=== PATIENT | male | born 1960 | race Hispanic/Latino ===

== ENCOUNTER 2017-09-24 19:40 | Inpatient (IN) | payer BC, MEDICARE ==
[2017-09-24] MEDS ORDERED: Sodium Chloride 0.9% 1,000 ML IV STA (20:33)
[2017-09-24 21:05] LABS: EOS # 0.2 K/uL (0.0-0.7); HEMOGLOBIN 13.3 g/dL (12.0-18.0); LYMPH # 0.2 K/uL (1.0-4.3); LYMPH % 2.6 % (20.0-40.0); MEAN CELL VOLUME 98.1 fl (80.0-94.0); MEAN CORPUSCULAR HEMOGLOBIN 32.9 pg (27.0-31.0); MEAN CORPUSCULAR HGB CONC 33.5 g/dL (33.0-37.0); MEAN PLATELET VOLUME 7.5 fl (7.2-11.7); MONO # 0.3 K/uL (0.0-0.8); MONO % 4.2 % (0.0-10.0); NEUT # 6.5 K/uL (1.8-7.0); NEUT % 90.2 % (50.0-75.0); PLATELET COUNT 172 K/uL (130-400); RBC 4.06 Mil/uL (4.40-5.90); RED CELL DISTRIBUTION WIDTH 12.8 % (11.5-14.5); WHITE BLOOD COUNT 7.2 K/uL (4.8-10.8)
--- NOTE | 2017-09-24 21:09 | ED PDOC ---
HPI: Abdomen Time Seen by Provider: 09/24/17 20:19 Chief Complaint (Nursing): Abdominal Pain Chief Complaint (Provider): Abdominal pain History Per: Patient History/Exam Limitations: no limitations Onset/Duration Of Symptoms: Days (6) Additional Complaint(s): Patient is a 56 y/o male with a past medical history of hepatitis B, hypertension, and atrial fibrillation presenting to the emergency department for fever, nausea, and right sided flank and abdominal pain ongoing for six days. Reports that the pain is intermittent and feels like a sharp, stabbing pain that radiates to the right side of his abdomen. Further reports dark colored urine, chills, and vomiting today. Denies chest pain, cough, shortness of breath, and other complaints. PCP: [facility] Past Medical History Reviewed: Historical Data, Nursing Documentation, Vital Signs Vital Signs: Last Vital Signs Temp 98.2 F 09/25/17 01:20 Pulse 109 H 09/25/17 04:21 Resp 19 09/25/17 01:20 BP 115/76 09/25/17 01:20 Pulse Ox 93 L 09/25/17 04:21 - Medical History PMH: Atrial Fibrillation, Hepatitis (B, acquired in childhood), HTN, Hyperlipidemia Denies: Chronic Kidney Disease - Surgical History Other surgeries: Abd Hernia repair 4 years [employer] - Family History Family History: States: No Known Family Hx - Social History Current smoker - smoking cessation education provided: No Ex-Smoker (has not smoked in the last 12 months): No Alcohol: None Drugs: Denies - Home Medications Home Medications: Ambulatory Orders Medication Instructions Recorded Aspirin [Ecotrin] 81 mg PO DAILY 09/24/17 Atorvastatin [Lipitor] 10 mg PO DAILY 09/24/17 Dabigatran [Pradaxa] 150 mg PO BID 09/24/17 MetFORMIN [glucoPHAGE] 750 mg PO DAILY 09/24/17 Metoprolol Succinate [Toprol XL] 100 mg PO BID 09/24/17 Propafenone [Rythmol] 425 mg PO BID 09/24/17 Quinapril [Accupril] 20 mg PO DAILY 09/24/17 amLODIPine [Norvasc] 10 mg PO DAILY 09/24/17 - Allergies Allergies/Adverse Reactions: Allergies Allergy/AdvReac Type Severity Reaction Status Date / Time furosemide Allergy Mild RASH Verified 09/24/17 20:27 Iodine and Iodide Containing Allergy Mild RASH Verified 09/24/17 20:27 Produc sitagliptin [From Januvia] Allergy Mild RASH Verified 09/24/17 20:27 Review of Systems ROS Statement: Except As Marked, All Systems Reviewed And Found Negative Constitutional: Positive for: Fever, Chills Cardiovascular: Negative for: Chest Pain Respiratory: Negative for: Cough, Shortness of Breath Gastrointestinal: Positive for: Nausea, Vomiting, Abdominal Pain (right sided flank and abdominal pain) Physical Exam - Reviewed Nursing Documentation Reviewed: Yes Vital Signs Reviewed: Yes - Physical Exam Appears: Positive for: Uncomfortable Head Exam: Positive for: ATRAUMATIC, NORMAL INSPECTION, NORMOCEPHALIC Skin: Positive for: Normal Color, Warm, Dry Eye Exam: Positive for: Normal appearance Neck: Positive for: Normal Cardiovascular/Chest: Positive for: Regular Rate, Rhythm. Negative for: Murmur Respiratory: Positive for: Normal Breath Sounds. Negative for: Accessory Muscle Use, Respiratory Distress Gastrointestinal/Abdominal: Positive for: Soft, Tenderness (mild right upper quadrant). Negative for: Other (Negative Martinez's point) Extremity: Positive for: Normal ROM Neurologic/Psych: Positive for: Alert, Oriented (x3) - Laboratory Results Result Diagrams: 09/24/17 20:50 09/24/17 20:50 - ECG ECG Rhythm: Positive for: Sinus Tachycardia. Negative for: ST/T Changes Rate: 109 O2 Sat by Pulse Oximetry: 93 (RA) Pulse Ox Interpretation: Normal Medical Decision Making Medical Decision Making: Time: 20:33 Initial impression: Patient is a 56 y/o male with right sided abdominal and flank pain, fever, nausea. Initial plan: EKG Labs: CMP, lactic acid, lipase, CBC ED Urine Dipstick Acetaminophen 975 mg PO Toradol 15 mg IV Normal Saline 1 L IV Zofran 4 mg IV Blood Culture Influenza test Urinalysis Abdominal ultrasound Reevaluation A CT order was originally placed, however patient reported that three CT scans were done in July. Given multiple recent CT studies, ultrasound study will be ordered for now. 20:53 EKG reviewed. 22:47 Abdominal ultrasound reviewed. Findings noted as follows: FINDINGS: Liver: Enlarged fatty liver. No intrahepatic bile duct dilation. Gallbladder: Multiple calcified gallstones are present. Negative Martinez's sign. Top normal gallbladder wall measuring 3 mm. Common bile duct: Unremarkable as visualized measuring 5 mm. No stones. No dilation. Pancreas: Unremarkable as visualized. Right kidney: Unremarkable. No stones. No solid mass. No hydronephrosis. IMPRESSION: Cholelithiasis. 22:50 Labs reviewed and were clinically significant for elevated LFTs. Discussed case with Joaquin Tay NP. Patient will be admitted for acute cholelithiasis and cholecystitis. 00:[address] Luis Teague, who was made aware of patients admission. Scribe Attestation: Documented by Katerine Sylvester & Xochitl Guerrero, acting as scribes for Sage Nuñez MD. Provider Scribe Attestation: All medical record entries made by the Scribe were at my direction and personally dictated by me. I have reviewed the chart and agree that the record accurately reflects my personal performance of the history, physical exam, medical decision making, and the department course for this patient. I have also personally directed, reviewed, and agree with the discharge instructions and disposition. Disposition - Clinical Impression Clinical Impression: Cholecystitis, Cholelithiasis - Patient ED Disposition Is Patient to be Admitted: Yes Discussed With Dr.: Luis Teague (Dr Scott surg resident) Comment: Irene Tay [facility] aware Doctor Will See Patient In The: Hospital Counseled Patient/Family Regarding: Studies Performed, Diagnosis - Disposition Disposition Time: 22:50 Condition: FAIR - Pt Status Changed To: Hospital Disposition Of: Inpatient - Admit Certification Admit to Inpatient:: After my assessment, the patient will require hospitalization for at least two midnights. This is because of the severity of symptoms shown, intensity of services needed, and/or the medical risk in this patient being treated as an outpatient.
[2017-09-24 21:14] LABS: ALB/GLOB RATIO 1.2 (1.0-2.1); ALBUMIN 4.5 g/dL (3.5-5.0); ALT/SGPT 374 U/L (21-72); AST/SGOT 178 U/L (17-59); BLOOD UREA NITROGEN 17 mg/dl (9-20); GFR AFRICAN-AMERICAN > 60; GFR NON-AFRICAN AMERICAN > 60; LIPASE 123 U/L (23-300)
[2017-09-24 21:25] LABS: SQUAMOUS EPITHIAL 7 /hpf (0-5); URINE BACTERIA RARE (<OCC); URINE BILIRUBIN MODERATE (NEGATIVE); URINE BLOOD SMALL (NEGATIVE); URINE CLARITY SLIGHTY-CLOUDY (Clear); URINE COLOR AMBER (YELLOW); URINE GLUCOSE (UA) NEG (Normal); URINE LEUKOCYTE ESTERASE NEG Leu/uL (Negative); URINE NITRATE NEGATIVE (NEGATIVE); URINE PROTEIN >=500 mg/dL (NEGATIVE)
[2017-09-24 22:15] LABS: BANDS 2 % (0-2); BASOPHIL 1 % (0-2); EOSINOPHIL 3 % (0-7); LYMPHOCYTE 6 % (20-50); MONOCYTE 4 % (0-10); NEUTROPHIL 84 % (42-75); PLATELET ESTIMATE NORMAL (NORMAL); TOTAL CELLS COUNTED 100
[2017-09-24 22:16] LABS: LARGE PLATELETS PRESENT
[2017-09-24] MEDS ORDERED: HYDROmorphone 1 mg/ml ISec IVP PRN (23:07)
[2017-09-24] MEDS ORDERED: Piperacillin/Tazobact 3.375 GM in Sodium Chloride 0.9% 100 ML IV STA (23:07)
[2017-09-24] MEDS ORDERED: Morphine 4 MG/ML VIAL IVP PRN (23:07)
[2017-09-24] MEDS ORDERED: Morphine 4 MG/ML VIAL ONE (23:26)
[2017-09-24] MEDS ORDERED: Morphine 4 MG/ML VIAL IVP ONE (23:45)
[2017-09-25] MEDS: Sodium Chloride 0.9% 1,000 ML IV SCH ×3 (01:04→19:15)
[2017-09-25] MEDS: Piperacillin/Tazobact 3.375 GM in Sodium Chloride 0.9% 100 ML IVPB SCH ×4 (01:49→18:56)
--- NOTE | 2017-09-25 05:58 | CP.PCM.CON ---
History of Present Illness - History of Present Illness History of Present Illness: General Surgery Consult Re: cholecystitis HPI: 56M presented to ER for fevers, nausea, and right sided flank and abd pain x 6 days. Pain was intermittent at first and feels like a sharp, stabbing pain on the right side of his abdomen. 3 days ago, the pain really began increasing to a severe point but he thought it would go away. Eventually decided to come to ED. + chills, emesis, dark colored urine, light colored stool. Denies chest pain, SOB, and other complaints. Reported he had hemoptysis in May that has since gone away. PMH: Hep B since childhood, DM, HTN, A Fib PSH: L inguinal hernia SH: Former smoker quit 20 yrs ago, Occasional EtOH, no drug use All: furosemide, iodine, sitagliptin Meds: See MAR Review of Systems - Review of Systems All systems: reviewed and no additional remarkable complaints except (as per HPI ) Past Patient History - Past Medical History & Family History Past Medical History?: Yes - Past Social History Alcohol: None Drugs: Denies - CARDIAC Hx Atrial Fibrillation: Yes Hx Hypertension: Yes - PULMONARY Hx Respiratory Disorders: Yes Other/Comment: Hemoptysis back in April 2017 which resolved as per pt. - NEUROLOGICAL Hx Neurological Disorder: No - HEENT Hx HEENT Problems: No - RENAL Hx Chronic Kidney Disease: No - ENDOCRINE/METABOLIC Hx Endocrine Disorders: Yes Hx Diabetes Mellitus Type 2: Yes - HEMATOLOGICAL/ONCOLOGICAL Hx Blood Disorders: Yes Hx Hepatitis B: Yes - INTEGUMENTARY Hx Dermatological Problems: No - MUSCULOSKELETAL/RHEUMATOLOGICAL Hx Musculoskeletal Disorders: No Hx Falls: No - GASTROINTESTINAL Hx Gastrointestinal Disorders: No - GENITOURINARY/GYNECOLOGICAL Hx Genitourinary Disorders: No - PSYCHIATRIC Hx Psychophysiologic Disorder: No Hx Substance Use: No - SURGICAL HISTORY Hx Surgeries: Yes Hx Herniorrhaphy: Yes - ANESTHESIA Hx Anesthesia: Yes Hx Anesthesia Reactions: No Meds Allergies/Adverse Reactions: Allergies Allergy/AdvReac Type Severity Reaction Status Date / Time furosemide Allergy Mild RASH Verified 09/24/17 20:27 Iodine and Iodide Containing Allergy Mild RASH Verified 09/24/17 20:27 Produc sitagliptin [From Octuv] Allergy Mild RASH Verified 09/24/17 20:27 - Medications Medications: Current Medications Acetaminophen (Tylenol 325mg Tab) 650 mg PO Q4 PRN PRN Reason: Fever >100.4 F Famotidine (Pepcid) 20 mg IVP Q12 [facility] Hydromorphone HCl (Dilaudid) 1 mg IVP Q4 PRN PRN Reason: Pain, severe (8-10) Sodium Chloride (Sodium Chloride 0.9%) 1,000 mls @ 100 mls/hr IV .Q10H [facility] Stop: 09/25/17 23:08 Last Admin: 09/25/17 01:04 Dose: 100 mls/hr Piperacillin Sod/Tazobactam (Sod 3.375 gm/ Sodium Chloride) 100 mls @ 100 mls/ hr IVPB Q6H TED PRN Reason: Protocol Last Admin: 09/25/17 05:00 Dose: 100 mls/hr Morphine Sulfate (Morphine) 4 mg IVP Q4 PRN PRN Reason: Pain, moderate (4-7) Last Admin: 09/25/17 05:05 Dose: 4 mg Ondansetron HCl (Zofran Inj) 4 mg IVP Q6 PRN PRN Reason: Nausea/Vomiting Pneumococcal Polyvalent Vaccine (Pneumovax 23 Vaccine) 0.5 ml IM .ONCE ONE Stop: 09/25/17 09:01 Physical Exam - Constitutional Appears: Non-toxic, No Acute Distress - Head Exam Head Exam: ATRAUMATIC, NORMOCEPHALIC - Eye Exam Eye Exam: EOMI, Scleral icterus - ENT Exam ENT Exam: Mucous Membranes Dry Additional comments: trachea midline - Respiratory Exam Respiratory Exam: NORMAL BREATHING PATTERN. absent: Respiratory Distress - Cardiovascular Exam Cardiovascular Exam: Tachycardia, +S1, +S2 - GI/Abdominal Exam GI & Abdominal Exam: Guarding, Soft, Tenderness (ruq). absent: Distended, Firm , Rebound, Rigid - Rectal Exam Rectal Exam: Deferred - Extremities Exam Extremities exam: Positive for: normal capillary refill. Negative for: calf tenderness - Back Exam Back exam: absent: CVA tenderness (L), CVA tenderness (R) - Neurological Exam Neurological exam: Alert, Oriented x3 - Psychiatric Exam Psychiatric exam: Normal Affect, Normal Mood - Skin Skin Exam: Dry, Warm Results - Vital Signs Recent Vital Signs: Last Vital Signs Temp 98.2 F 09/25/17 01:20 Pulse 109 H 09/25/17 04:22 Resp 19 09/25/17 01:20 BP 115/76 09/25/17 01:20 Pulse Ox 93 L 09/25/17 04:22 - Labs Result Diagrams: 09/24/17 20:50 09/24/17 20:50 Labs: Laboratory Results - last 24 hr 09/24/17 09/24/17 09/24/17 20:50 20:50 20:50 WBC 7.2 RBC 4.06 L Hgb 13.3 Hct 39.8 MCV 98.1 H MCH 32.9 H MCHC 33.5 RDW 12.8 Plt Count 172 MPV 7.5 Neut % (Auto) 90.2 H Lymph % (Auto) 2.6 L [place] % (Auto) 4.2 Eos % (Auto) 3.0 Baso % (Auto) 0.0 Neut # 6.5 Lymph # 0.2 L [place] # 0.3 Eos # 0.2 Baso # 0.0 Neutrophils % (Manual) 84 H Band Neutrophils % 2 Lymphocytes % (Manual) 6 L Monocytes % (Manual) 4 Eosinophils % (Manual) 3 Basophils % (Manual) 1 Platelet Estimate Normal Large Platelets Present Macrocytosis (manual) Slight Sodium 133 Potassium 3.8 Chloride 97 L Carbon Dioxide 22 Anion Gap 18 BUN 17 Creatinine 1.0 Est GFR ( Amer) > 60 Est GFR (Non-Af Amer) > 60 POC Glucose (mg/dL) Random Glucose 180 H Lactic Acid 2.4 H Calcium 9.0 Total Bilirubin 4.7 H AST 178 H ALT 374 H Alkaline Phosphatase 169 H Total Protein 8.3 H Albumin 4.5 Globulin 3.8 Albumin/Globulin Ratio 1.2 Lipase 123 Urine Color Urine Clarity Urine pH Ur Specific [place] Urine Protein Urine Glucose (UA) Urine Ketones Urine Blood Urine Nitrate Urine Bilirubin Urine Urobilinogen Ur Leukocyte Esterase Urine RBC (Auto) Urine Microscopic WBC Ur Squamous Epith Cells Urine Bacteria Hyaline Casts Influenza Typ A,B (EIA) 09/24/17 09/24/17 09/25/17 20:50 20:50 01:07 WBC RBC Hgb Hct MCV MCH MCHC RDW Plt Count MPV Neut % (Auto) Lymph % (Auto) [place] % (Auto) Eos % (Auto) Baso % (Auto) Neut # Lymph # [place] # Eos # Baso # Neutrophils % (Manual) Band Neutrophils % Lymphocytes % (Manual) Monocytes % (Manual) Eosinophils % (Manual) Basophils % (Manual) Platelet Estimate Large Platelets Macrocytosis (manual) Sodium Potassium Chloride Carbon Dioxide Anion Gap BUN Creatinine Est GFR ( Amer) Est GFR (Non-Af Amer) POC Glucose (mg/dL) 137 H Random Glucose Lactic Acid Calcium Total Bilirubin AST ALT Alkaline Phosphatase Total Protein Albumin Globulin Albumin/Globulin Ratio Lipase Urine Color Enriqueta Urine Clarity Slighty-cloudy Urine pH 5.0 Ur Specific [place] 1.025 Urine Protein >=500 Urine Glucose (UA) Neg Urine Ketones Trace Urine Blood Small Urine Nitrate Negative Urine Bilirubin Moderate Urine Urobilinogen 4.0 Ur Leukocyte Esterase Neg Urine RBC (Auto) 9 H Urine Microscopic WBC 7 H Ur Squamous Epith Cells 7 H Urine Bacteria Rare Hyaline Casts 6-10 H Influenza Typ A,B (EIA) Negative for flu a/b - Imaging and Cardiology Abdominal x-ray Status: Image reviewed by me (report pending) Assessment & Plan - Assessment and Plan (Free Text) Assessment: 56M with cholelithiasis, possible choledocolithiasis Plan: F/U MRCP NPO Analgesia On zosyn Monitor fevers and abd pain AM labs D/W Dr. Ho Scott PGY4
[2017-09-25 07:34] LABS: INR 1.2 (0.9-1.2); PARTIAL THROMBOPLASTIN TIME 49.7 Seconds (25.6-37.1); PROTHROMBIN TIME 13.6 Seconds (9.8-13.1)
[2017-09-25 08:09] LABS: BASO % 0.4 % (0.0-2.0); EOS # 0.1 K/uL (0.0-0.7); EOS % 2.2 % (0.0-4.0); HEMOGLOBIN 11.7 g/dL (12.0-18.0); LYMPH # 0.4 K/uL (1.0-4.3); LYMPH % 5.7 % (20.0-40.0); MEAN CELL VOLUME 97.8 fl (80.0-94.0); MEAN CORPUSCULAR HEMOGLOBIN 32.7 pg (27.0-31.0); MEAN CORPUSCULAR HGB CONC 33.4 g/dL (33.0-37.0); MEAN PLATELET VOLUME 7.9 fl (7.2-11.7); MONO # 0.9 K/uL (0.0-0.8); MONO % 13.3 % (0.0-10.0); NEUT # 5.1 K/uL (1.8-7.0); NEUT % 78.4 % (50.0-75.0); RBC 3.59 Mil/uL (4.40-5.90); RED CELL DISTRIBUTION WIDTH 12.7 % (11.5-14.5); WHITE BLOOD COUNT 6.5 K/uL (4.8-10.8)
[2017-09-25 08:37] LABS: BLOOD UREA NITROGEN 15 mg/dl (9-20); GFR AFRICAN-AMERICAN > 60; GFR NON-AFRICAN AMERICAN > 60
[2017-09-25 08:38] LABS: ALBUMIN 3.6 g/dL (3.5-5.0); ALT/SGPT 289 U/L (21-72); AST/SGOT 134 U/L (17-59)
[2017-09-25] MEDS ORDERED: Pneumococcal 23-Valent Vaccine IM ONE (09:00)
--- NOTE | 2017-09-25 09:00 | US ---
HISTORY: RUQ with GB and kidney COMPARISON: None. TECHNIQUE: Sonographic evaluation of the right upper quadrant of the abdomen. FINDINGS: LIVER: Enlarged, measuring 21.6 cm in length. Increased echogenicity of the liver parenchyma. No mass. No intrahepatic bile duct dilatation. GALLBLADDER: Minimal cholelithiasis without gallbladder wall thickening or pericholecystic fluid. Sonographic Martinez sign was not elicited. COMMON BILE DUCT: Measures 5 mm. No stones. No dilatation. PANCREAS: Unremarkable as visualized. No mass. No ductal dilatation. RIGHT KIDNEY: Measures 12.4 x 5.9 x 5.8 cm in length. Normal echogenicity. No calculus, mass, or hydronephrosis. AORTA: No aneurysmal dilatation. IVC: Unremarkable. OTHER FINDINGS: None . IMPRESSION: Minimal cholelithiasis without sonographic evidence for acute cholecystitis. Hepatomegaly with steatosis.
--- NOTE | 2017-09-25 10:36 | CP.PCM.HP ---
History of Present Illness - History of Present Illness History of Present Illness: pt admitted for cholelithiasis/cholecystitis. at present pain is controlled. no f/c, n/v/d. bw noted. t bili and lft elevated but trending down. seen at bedside w/ srgical resident. pt is on pradaxa, last dose last night Present on Admission - Present on Admission Any Indicators Present on Admission: Yes History of Uncontrolled Diabetes: Yes Review of Systems - Gastrointestinal Gastrointestinal: As Per HPI, Abdominal Pain Past Patient History - Past Medical History & Family History Past Medical History?: Yes - Past Social History Alcohol: None Drugs: Denies - CARDIAC Hx Atrial Fibrillation: Yes Hx Hypertension: Yes - PULMONARY Hx Respiratory Disorders: Yes Other/Comment: Hemoptysis back in April 2017 which resolved as per pt. - NEUROLOGICAL Hx Neurological Disorder: No - HEENT Hx HEENT Problems: No - RENAL Hx Chronic Kidney Disease: No - ENDOCRINE/METABOLIC Hx Endocrine Disorders: Yes Hx Diabetes Mellitus Type 2: Yes - HEMATOLOGICAL/ONCOLOGICAL Hx Blood Disorders: Yes Hx Hepatitis B: Yes - INTEGUMENTARY Hx Dermatological Problems: No - MUSCULOSKELETAL/RHEUMATOLOGICAL Hx Musculoskeletal Disorders: No Hx Falls: No - GASTROINTESTINAL Hx Gastrointestinal Disorders: No - GENITOURINARY/GYNECOLOGICAL Hx Genitourinary Disorders: No - PSYCHIATRIC Hx Psychophysiologic Disorder: No Hx Substance Use: No - SURGICAL HISTORY Hx Surgeries: Yes Hx Herniorrhaphy: Yes - ANESTHESIA Hx Anesthesia: Yes Hx Anesthesia Reactions: No Meds Home Medications: Home Medication List Medication Instructions Recorded Confirmed Type Amoxicillin/Clavulanate [Augmentin 1 tab PO BID #14 tab 09/25/17 Rx 875 MG-125 MG] oxyCODONE/Acetaminophen [Percocet 1 tab PO Q4 PRN #10 tab 09/25/17 Rx 5/325 mg Tab] Allergies/Adverse Reactions: Allergies Allergy/AdvReac Type Severity Reaction Status Date / Time furosemide Allergy Mild RASH Verified 09/24/17 20:27 Iodine and Iodide Containing Allergy Mild RASH Verified 09/24/17 20:27 Produc sitagliptin [From Januvia] Allergy Mild RASH Verified 09/24/17 20:27 Physical Exam - Constitutional Appears: Well, Non-toxic, No Acute Distress - Head Exam Head Exam: ATRAUMATIC, NORMAL INSPECTION, NORMOCEPHALIC - Eye Exam Eye Exam: EOMI, Normal appearance, PERRL Pupil Exam: NORMAL ACCOMODATION, PERRL - ENT Exam ENT Exam: Mucous Membranes Moist, Normal Exam - Neck Exam Neck exam: Positive for: Normal Inspection - Respiratory Exam Respiratory Exam: Clear to Auscultation Bilateral, NORMAL BREATHING PATTERN - Cardiovascular Exam Cardiovascular Exam: REGULAR RHYTHM, RRR, +S1, +S2 - GI/Abdominal Exam GI & Abdominal Exam: Normal Bowel Sounds, Soft. absent: Tenderness - Extremities Exam Extremities exam: Positive for: full ROM, normal capillary refill, normal inspection, pedal pulses present - Back Exam Back exam: NORMAL INSPECTION - Neurological Exam Neurological exam: Alert, CN II-XII Intact, Normal Gait, Oriented x3, Reflexes Normal - Psychiatric Exam Psychiatric exam: Normal Affect, Normal Mood - Skin Skin Exam: Dry, Intact, Normal Color, Warm Results - Vital Signs Recent Vital Signs: Last Vital Signs Temp 98.6 F 09/25/17 08:39 Pulse 66 09/25/17 08:39 Resp 20 09/25/17 08:39 BP 147/90 09/25/17 08:39 Pulse Ox 95 09/25/17 08:39 - Labs Result Diagrams: 09/25/17 07:00 09/25/17 06:15 Labs: Laboratory Results - last 24 hr 09/24/17 09/24/17 09/24/17 20:50 20:50 20:50 WBC 7.2 RBC 4.06 L Hgb 13.3 Hct 39.8 MCV 98.1 H MCH 32.9 H MCHC 33.5 RDW 12.8 Plt Count 172 MPV 7.5 Neut % (Auto) 90.2 H Lymph % (Auto) 2.6 L [place] % (Auto) 4.2 Eos % (Auto) 3.0 Baso % (Auto) 0.0 Neut # 6.5 Lymph # 0.2 L [place] # 0.3 Eos # 0.2 Baso # 0.0 Neutrophils % (Manual) 84 H Band Neutrophils % 2 Lymphocytes % (Manual) 6 L Monocytes % (Manual) 4 Eosinophils % (Manual) 3 Basophils % (Manual) 1 Platelet Estimate Normal Large Platelets Present Macrocytosis (manual) Slight PT INR APTT Sodium 133 Potassium 3.8 Chloride 97 L Carbon Dioxide 22 Anion Gap 18 BUN 17 Creatinine 1.0 Est GFR ( Amer) > 60 Est GFR (Non-Af Amer) > 60 POC Glucose (mg/dL) Random Glucose 180 H Lactic Acid 2.4 H Calcium 9.0 Total Bilirubin 4.7 H AST 178 H ALT 374 H Alkaline Phosphatase 169 H Total Protein 8.3 H Albumin 4.5 Globulin 3.8 Albumin/Globulin Ratio 1.2 Lipase 123 Urine Color Urine Clarity Urine pH Ur Specific [place] Urine Protein Urine Glucose (UA) Urine Ketones Urine Blood Urine Nitrate Urine Bilirubin Urine Urobilinogen Ur Leukocyte Esterase Urine RBC (Auto) Urine Microscopic WBC Ur Squamous Epith Cells Urine Bacteria Hyaline Casts Influenza Typ A,B (EIA) 09/24/17 09/24/17 09/25/17 20:50 20:50 01:07 WBC RBC Hgb Hct MCV MCH MCHC RDW Plt Count MPV Neut % (Auto) Lymph % (Auto) [place] % (Auto) Eos % (Auto) Baso % (Auto) Neut # Lymph # [place] # Eos # Baso # Neutrophils % (Manual) Band Neutrophils % Lymphocytes % (Manual) Monocytes % (Manual) Eosinophils % (Manual) Basophils % (Manual) Platelet Estimate Large Platelets Macrocytosis (manual) PT INR APTT Sodium Potassium Chloride Carbon Dioxide Anion Gap BUN Creatinine Est GFR ( Amer) Est GFR (Non-Af Amer) POC Glucose (mg/dL) 137 H Random Glucose Lactic Acid Calcium Total Bilirubin AST ALT Alkaline Phosphatase Total Protein Albumin Globulin Albumin/Globulin Ratio Lipase Urine Color [place] Urine Clarity Slighty-cloudy Urine pH 5.0 Ur Specific [place] 1.025 Urine Protein >=500 Urine Glucose (UA) Neg Urine Ketones Trace Urine Blood Small Urine Nitrate Negative Urine Bilirubin Moderate Urine Urobilinogen 4.0 Ur Leukocyte Esterase Neg Urine RBC (Auto) 9 H Urine Microscopic WBC 7 H Ur Squamous Epith Cells 7 H Urine Bacteria Rare Hyaline Casts 6-10 H Influenza Typ A,B (EIA) Negative for flu a/b 09/25/17 09/25/17 09/25/17 05:59 06:15 06:15 WBC RBC Hgb Hct MCV MCH MCHC RDW Plt Count MPV Neut % (Auto) Lymph % (Auto) [place] % (Auto) Eos % (Auto) Baso % (Auto) Neut # Lymph # [place] # Eos # Baso # Neutrophils % (Manual) Band Neutrophils % Lymphocytes % (Manual) Monocytes % (Manual) Eosinophils % (Manual) Basophils % (Manual) Platelet Estimate Large Platelets Macrocytosis (manual) PT 13.6 H INR 1.2 APTT 49.7 H Sodium 137 Potassium 3.7 Chloride 101 Carbon Dioxide 26 Anion Gap 14 BUN 15 Creatinine 1.0 Est GFR ( Amer) > 60 Est GFR (Non-Af Amer) > 60 POC Glucose (mg/dL) 115 H Random Glucose 109 Lactic Acid Calcium 8.0 L Total Bilirubin 3.7 H AST 134 H D ALT 289 H D Alkaline Phosphatase 117 Total Protein 7.1 Albumin 3.6 Globulin 3.5 Albumin/Globulin Ratio 1.0 Lipase Urine Color Urine Clarity Urine pH Ur Specific [place] Urine Protein Urine Glucose (UA) Urine Ketones Urine Blood Urine Nitrate Urine Bilirubin Urine Urobilinogen Ur Leukocyte Esterase Urine RBC (Auto) Urine Microscopic WBC Ur Squamous Epith Cells Urine Bacteria Hyaline Casts Influenza Typ A,B (EIA) 09/25/17 09/25/17 06:15 07:00 WBC 6.5 RBC 3.59 L Hgb 11.7 L Hct 35.1 MCV 97.8 H MCH 32.7 H MCHC 33.4 RDW 12.7 Plt Count 157 MPV 7.9 Neut % (Auto) 78.4 H Lymph % (Auto) 5.7 L [place] % (Auto) 13.3 H Eos % (Auto) 2.2 Baso % (Auto) 0.4 Neut # 5.1 Lymph # 0.4 L [place] # 0.9 H Eos # 0.1 Baso # 0.0 Neutrophils % (Manual) Band Neutrophils % Lymphocytes % (Manual) Monocytes % (Manual) Eosinophils % (Manual) Basophils % (Manual) Platelet Estimate Large Platelets Macrocytosis (manual) PT INR APTT Sodium Potassium Chloride Carbon Dioxide Anion Gap BUN Creatinine Est GFR ( Amer) Est GFR (Non-Af Amer) POC Glucose (mg/dL) Random Glucose Lactic Acid 1.2 Calcium Total Bilirubin AST ALT Alkaline Phosphatase Total Protein Albumin Globulin Albumin/Globulin Ratio Lipase Urine Color Urine Clarity Urine pH Ur Specific [place] Urine Protein Urine Glucose (UA) Urine Ketones Urine Blood Urine Nitrate Urine Bilirubin Urine Urobilinogen Ur Leukocyte Esterase Urine RBC (Auto) Urine Microscopic WBC Ur Squamous Epith Cells Urine Bacteria Hyaline Casts Influenza Typ A,B (EIA) Assessment & Plan (1) Afib Assessment and Plan: pradaxa, rate control, home meds will likely needs 5-7 days off pradaxa prior to lap ajit Status: Acute (2) DVT prophylaxis Assessment and Plan: scd nad ae hose pradaxa Status: Acute (3) Cholecystitis Assessment and Plan: zosyn pain and nausea control po as tara once cleared by surgery ? need to f/u as outpt for lap ajit r/t pradaxa Status: Acute (4) Cholelithiasis Assessment and Plan: pain and nausea control anbx surgery ?? need for outpt f/u once pradaxa stopped Status: Acute Decision To Admit - Pt Status Changed To: Hospital Disposition Of: Inpatient - Admit Certification Admit to Inpatient:: After my assessment, the patient will require hospitalization for at least two midnights. This is because of the severity of symptoms shown, intensity of services needed, and/or the medical risk in this patient being treated as an outpatient. - . Bed Request Type: Med/Surg Admitting Physician: Geovanna Berrios
[2017-09-25] MEDS ORDERED: Metoprolol Succinate 100 mg XL Tab PO SCH (10:45)
--- NOTE | 2017-09-25 10:45 | RAD ---
PROCEDURE: CHEST RADIOGRAPH, 1 VIEW HISTORY: pre op COMPARISON: Chest radiograph dated 06/06/2013 FINDINGS: LUNGS: Clear. PLEURA: No pneumothorax or pleural fluid seen. CARDIOVASCULAR: Cardiomediastinal silhouette stably prominent. OSSEOUS STRUCTURES: Unchanged. VISUALIZED UPPER ABDOMEN: Normal. OTHER FINDINGS: None. IMPRESSION: No active disease.
--- NOTE | 2017-09-25 12:16 | CARD ---
APPROVED REPORT EKG Measurement Heart [id number] <Conclusion> Sinus tachycardia Possible Left atrial enlargement Rightward axis Borderline ECG
--- NOTE | 2017-09-25 15:30 | MRI ---
PROCEDURE: Magnetic Resonance Cholangiopancreatography HISTORY: COMPARISON: None available. TECHNIQUE: Multiplanar, multisequence MR images of the abdomen were obtained, including heavily T2 weighted MRCP images of the biliary system. Rotating maximum intensity projection images of the biliary system were generated. FINDINGS: MRCP: The common bile duct is of a normal caliber. No evidence of choledocholithiasis. No intrahepatic biliary ductal dilatation. LIVER: Unremarkable. GALLBLADDER: Distended gallbladder with minimal cholelithiasis. No gallbladder wall thickening or pericholecystic fluid. SPLEEN: Unremarkable. PANCREAS: Unremarkable. ADRENALS: Unremarkable. KIDNEYS: Nonspecific perinephric stranding. No hydronephrosis. AORTA: No aneurysm. ASCITES: None. OTHER FINDINGS: Small fat containing umbilical hernia. IMPRESSION: As on the ultrasonography, minimal cholelithiasis without MR evidence for acute cholecystitis. No evidence of choledocholithiasis or intrahepatic/extrahepatic biliary ductal dilatation.
--- NOTE | 2017-09-25 18:30 | CON ---
DATE: 09/25/2017 REFERRING PHYSICIAN: Dr. Tay. REASON FOR CONSULTATION: Abdominal pain. HISTORY OF PRESENT ILLNESS: This is a pleasant 56-year-old man with past medical history, which includes AFib, diabetes, hypertension, who comes in for epigastric pain and discomfort in the right upper quadrant and 4 days. The pain is actually not as worse as it was before. No fevers, no chills, no nausea, no vomiting. Currently lying in bed, comfortable, in no apparent distress. PAST MEDICAL HISTORY: As above. PAST SURGICAL HISTORY: As above. MEDICATIONS: Have been reviewed. REVIEW OF SYSTEMS: All other systems have been reviewed, negative apart from the HPI. PHYSICAL EXAMINATION VITAL SIGNS: During the hospital grossly unremarkable. GENERAL: This is a pleasant elderly-appearing male, lying in bed, comfortable, in no apparent distress. HEENT: Head is normocephalic, atraumatic. Eyes; pupils are equal, round, and reactive to light bilaterally. No conjunctival pallor or icterus. NECK: Supple. Normal range of motion. No lymphadenopathy appreciated. LUNGS: Coarse breath sounds bilaterally. HEART: S1, S2, regular rate and rhythm. No murmur appreciated. ABDOMEN: Soft and nontender. Bowel sounds present. No rebound. No guarding. RECTAL: Deferred. EXTREMITIES: Pulses present bilaterally. SKIN: Warm, dry and intact. NEUROLOGIC: A and O x3. LABORATORY DATA: Labs have been reviewed. WBC is 6.5, hemoglobin is 11.7, hematocrit 35.1. Total bilirubin 4.7, now 10.7, alkaline phosphatase is normal at 117. AST and ALT improving at 134 and 289. Ultrasound shows gallstones and no CBD dilatation. ASSESSMENT AND PLAN: This is a 56-year-old male with acute cholecystitis. Plan for laparoscopic cholecystectomy when able. MRCP is pending. Thank you for the consult. Zacarias Rome MD/ PhD cc: Dr. Tay. [facility]
[2017-09-25] MEDS ORDERED: PROPAFENONE 425 MG PO SCH ×2 (19:30)
[2017-09-26] MEDS: Piperacillin/Tazobact 3.375 GM in Sodium Chloride 0.9% 100 ML IVPB SCH ×5 (00:18→23:54)
[2017-09-26] MEDS: PROPAFENONE 425 MG PO SCH ×2 (05:59→17:04)
[2017-09-26 07:14] LABS: BASO % 0.4 % (0.0-2.0); EOS # 0.2 K/uL (0.0-0.7); EOS % 3.7 % (0.0-4.0); HEMOGLOBIN 12.4 g/dL (12.0-18.0); LYMPH # 0.4 K/uL (1.0-4.3); MEAN CELL VOLUME 97.3 fl (80.0-94.0); MEAN CORPUSCULAR HEMOGLOBIN 33.5 pg (27.0-31.0); MEAN CORPUSCULAR HGB CONC 34.4 g/dL (33.0-37.0); MEAN PLATELET VOLUME 8.3 fl (7.2-11.7); MONO # 0.8 K/uL (0.0-0.8); NEUT # 4.8 K/uL (1.8-7.0); NEUT % 76.9 % (50.0-75.0); NRBC % 0.1 % (0.0-0.0); RBC 3.7 Mil/uL (4.40-5.90); RED CELL DISTRIBUTION WIDTH 12.8 % (11.5-14.5); WHITE BLOOD COUNT 6.3 K/uL (4.8-10.8)
[2017-09-26 07:22] LABS: ALBUMIN 3.6 g/dL (3.5-5.0); ALT/SGPT 258 U/L (21-72); AST/SGOT 105 U/L (17-59); BLOOD UREA NITROGEN 11 mg/dl (9-20); CALCIUM 8.3 mg/dL (8.4-10.2); GFR AFRICAN-AMERICAN > 60; GFR NON-AFRICAN AMERICAN > 60
[2017-09-26] MEDS: Multivitamin With Minerals Tab PO SCH (08:56)
--- NOTE | 2017-09-26 09:43 | CP.PCM.PN ---
<Katelin Martínez - Last Filed: 09/26/17 09:41> Subjective - Date & Time of Evaluation Date of Evaluation: 09/26/17 Time of Evaluation: 05:20 - Subjective Subjective: General surgery progress note for Dr. Begum-Katelin Martínez, PGY-1 Pt S & E at bedside. Pt reports intermittent abdominal pain well controlled with pain medication. Able to tolerated a liquid diet last night. Denies N & V, F & C, CP, SOB, other complaints. Last Pradaxa 09/24. Objective - Vital Signs/Intake and Output Vital Signs (last 24 hours): Temp Pulse Resp BP Pulse Ox 99.2 F 66 20 134/80 94 L 09/26/17 08:16 09/26/17 08:56 09/26/17 08:16 09/26/17 08:56 09/26/17 08:16 - Medications Medications: Current Medications Acetaminophen (Tylenol 325mg Tab) 650 mg PO Q4 PRN PRN Reason: Fever >100.4 F Amlodipine Besylate (Norvasc) 10 mg PO DAILY [facility] Last Admin: 09/26/17 08:54 Dose: 10 mg Atorvastatin Calcium (Lipitor) 10 mg PO HS [facility] Last Admin: 09/25/17 21:48 Dose: 10 mg Famotidine (Pepcid) 20 mg IVP Q12 [facility] Last Admin: 09/26/17 08:54 Dose: 20 mg Home Med (Patient's Own Medication) 1 unit PO Q12@0500,1700 [facility] Last Admin: 09/26/17 05:59 Dose: 1 unit Hydromorphone HCl (Dilaudid) 1 mg IVP Q4 PRN PRN Reason: Pain, severe (8-10) Last Admin: 09/26/17 00:26 Dose: 1 mg Piperacillin Sod/Tazobactam (Sod 3.375 gm/ Sodium Chloride) 100 mls @ 100 mls/ hr IVPB Q6H [facility] PRN Reason: Protocol Last Admin: 09/26/17 06:00 Dose: 100 mls/hr Lisinopril (Zestril) 20 mg PO DAILY [facility] Last Admin: 09/26/17 08:56 Dose: 20 mg Metformin HCl (Glucophage) 750 mg PO DAILY [facility] Last Admin: 09/26/17 08:51 Dose: 750 mg Metoprolol Tartrate (Lopressor) 100 mg PO Q12 [facility] Last Admin: 09/26/17 08:53 Dose: 100 mg Morphine Sulfate (Morphine) 4 mg IVP Q4 PRN PRN Reason: Pain, moderate (4-7) Last Admin: 09/25/17 19:06 Dose: 4 mg Multivitamins/Minerals (Therapeutic-M Tab) 1 tab PO DAILY [facility] Last Admin: 09/26/17 08:56 Dose: 1 tab Ondansetron HCl (Zofran Inj) 4 mg IVP Q6 PRN PRN Reason: Nausea/Vomiting - Labs Labs: 09/26/17 05:25 09/26/17 05:25 PT 13.6 Seconds (9.8-13.1) H 09/25/17 06:15 INR 1.2 (0.9-1.2) 09/25/17 06:15 APTT 49.7 Seconds (25.6-37.1) H 09/25/17 06:15 - Constitutional Appears: Non-toxic, No Acute Distress - Head Exam Head Exam: ATRAUMATIC, NORMAL INSPECTION, NORMOCEPHALIC - Eye Exam Eye Exam: EOMI, Normal appearance - ENT Exam ENT Exam: Mucous Membranes Moist, Normal Exam - Neck Exam Neck Exam: Full ROM, Normal Inspection - Respiratory Exam Respiratory Exam: Clear to Ausculation Bilateral, NORMAL BREATHING PATTERN - Cardiovascular Exam Cardiovascular Exam: REGULAR RHYTHM, +S1, +S2 - GI/Abdominal Exam GI & Abdominal Exam: Soft, Normal Bowel Sounds. absent: Distended (obese), Firm , Guarding, Rigid, Tenderness, Mass, Rebound - Extremities Exam Extremities Exam: Normal Inspection. absent: Pedal Edema - Neurological Exam Neurological Exam: Alert, Awake, CN II-XII Intact, Oriented x3 - Psychiatric Exam Psychiatric exam: Normal Affect, Normal Mood - Skin Skin Exam: Dry, Intact, Normal Color, Warm Assessment and Plan - Assessment and Plan (Free Text) Assessment: 56M w/symptomatic cholelithiasis Plan: MRCP w/findings of minimal cholelithiasis without MR evidence for acute cholecystitis. No evidence of choledocholithiasis or intrahepatic/extrahepatic biliary ductal dilatation. Do not restart Pradaxa Pain mgmt Cont Abx Monitor VS and ab pain T bili resolving, now 2.5 from 3.7 Cont medical mgmt as per primary team Further recs as per attending DW attending Tanya, PGY-1 <Blair Begum - Last Filed: 09/26/17 12:31> Subjective - Date & Time of Evaluation Time of Evaluation: 12:05 - Subjective Subjective: Patient was seen and examined at the bedside. Agree with resident's note above. Objective - Vital Signs/Intake and Output Vital Signs (last 24 hours): Temp Pulse Resp BP Pulse Ox 99.2 F 66 20 134/80 94 L 09/26/17 08:16 09/26/17 08:56 09/26/17 08:16 09/26/17 08:56 09/26/17 08:16 - Medications Medications: Current Medications Acetaminophen (Tylenol 325mg Tab) 650 mg PO Q4 PRN PRN Reason: Fever >100.4 F Amlodipine Besylate (Norvasc) 10 mg PO DAILY [facility] Last Admin: 09/26/17 08:54 Dose: 10 mg Atorvastatin Calcium (Lipitor) 10 mg PO HS [facility] Last Admin: 09/25/17 21:48 Dose: 10 mg Famotidine (Pepcid) 20 mg IVP Q12 [facility] Last Admin: 09/26/17 08:54 Dose: 20 mg Home Med (Patient's Own Medication) 1 unit PO Q12@0500,1700 [facility] Last Admin: 09/26/17 05:59 Dose: 1 unit Hydromorphone HCl (Dilaudid) 1 mg IVP Q4 PRN PRN Reason: Pain, severe (8-10) Last Admin: 09/26/17 00:26 Dose: 1 mg Piperacillin Sod/Tazobactam (Sod 3.375 gm/ Sodium Chloride) 100 mls @ 100 mls/ hr IVPB Q6H [facility] PRN Reason: Protocol Last Admin: 09/26/17 06:00 Dose: 100 mls/hr Lisinopril (Zestril) 20 mg PO DAILY [facility] Last Admin: 09/26/17 08:56 Dose: 20 mg Metformin HCl (Glucophage) 750 mg PO DAILY [facility] Last Admin: 09/26/17 08:51 Dose: 750 mg Metoprolol Tartrate (Lopressor) 100 mg PO Q12 [facility] Last Admin: 09/26/17 08:53 Dose: 100 mg Morphine Sulfate (Morphine) 4 mg IVP Q4 PRN PRN Reason: Pain, moderate (4-7) Last Admin: 09/25/17 19:06 Dose: 4 mg Multivitamins/Minerals (Therapeutic-M Tab) 1 tab PO DAILY [facility] Last Admin: 09/26/17 08:56 Dose: 1 tab Ondansetron HCl (Zofran Inj) 4 mg IVP Q6 PRN PRN Reason: Nausea/Vomiting - Labs Labs: 09/26/17 05:25 09/26/17 05:25 PT 13.6 Seconds (9.8-13.1) H 09/25/17 06:15 INR 1.2 (0.9-1.2) 09/25/17 06:15 APTT 49.7 Seconds (25.6-37.1) H 09/25/17 06:15 Assessment and Plan - Assessment and Plan (Free Text) Plan: - Regular diet - Continue antibiotics - Pain control - Hold anticoagulation - Repeat labs in am - Will require cholecystectomy once Pradaxa wears off - Out of bed - Will follow
--- NOTE | 2017-09-26 10:34 | CP.PCM.PN ---
Subjective - Date & Time of Evaluation Date of Evaluation: 09/26/17 Time of Evaluation: 10:33 - Subjective Subjective: no complaints. abd pain w/ eating. no f/c, n/v/d. pradaxa/asa stopped yesterday. gram neg shellie in 1x bc noted. ID consult pending. Objective - Vital Signs/Intake and Output Vital Signs (last 24 hours): Temp Pulse Resp BP Pulse Ox 99.2 F 66 20 134/80 94 L 09/26/17 08:16 09/26/17 08:56 09/26/17 08:16 09/26/17 08:56 09/26/17 08:16 - Medications Medications: Current Medications Acetaminophen (Tylenol 325mg Tab) 650 mg PO Q4 PRN PRN Reason: Fever >100.4 F Amlodipine Besylate (Norvasc) 10 mg PO DAILY [facility] Last Admin: 09/26/17 08:54 Dose: 10 mg Atorvastatin Calcium (Lipitor) 10 mg PO HS [facility] Last Admin: 09/25/17 21:48 Dose: 10 mg Famotidine (Pepcid) 20 mg IVP Q12 [facility] Last Admin: 09/26/17 08:54 Dose: 20 mg Home Med (Patient's Own Medication) 1 unit PO Q12@0500,1700 [facility] Last Admin: 09/26/17 05:59 Dose: 1 unit Hydromorphone HCl (Dilaudid) 1 mg IVP Q4 PRN PRN Reason: Pain, severe (8-10) Last Admin: 09/26/17 00:26 Dose: 1 mg Piperacillin Sod/Tazobactam (Sod 3.375 gm/ Sodium Chloride) 100 mls @ 100 mls/ hr IVPB Q6H [facility] PRN Reason: Protocol Last Admin: 09/26/17 06:00 Dose: 100 mls/hr Lisinopril (Zestril) 20 mg PO DAILY [facility] Last Admin: 09/26/17 08:56 Dose: 20 mg Metformin HCl (Glucophage) 750 mg PO DAILY [facility] Last Admin: 09/26/17 08:51 Dose: 750 mg Metoprolol Tartrate (Lopressor) 100 mg PO Q12 [facility] Last Admin: 09/26/17 08:53 Dose: 100 mg Morphine Sulfate (Morphine) 4 mg IVP Q4 PRN PRN Reason: Pain, moderate (4-7) Last Admin: 09/25/17 19:06 Dose: 4 mg Multivitamins/Minerals (Therapeutic-M Tab) 1 tab PO DAILY [facility] Last Admin: 09/26/17 08:56 Dose: 1 tab Ondansetron HCl (Zofran Inj) 4 mg IVP Q6 PRN PRN Reason: Nausea/Vomiting - Labs Labs: 09/26/17 05:25 09/26/17 05:25 PT 13.6 Seconds (9.8-13.1) H 09/25/17 06:15 INR 1.2 (0.9-1.2) 09/25/17 06:15 APTT 49.7 Seconds (25.6-37.1) H 09/25/17 06:15 - Constitutional Appears: Well, Non-toxic, No Acute Distress - Head Exam Head Exam: ATRAUMATIC, NORMAL INSPECTION, NORMOCEPHALIC - Eye Exam Eye Exam: EOMI, Normal appearance, PERRL Pupil Exam: NORMAL ACCOMODATION, PERRL - ENT Exam ENT Exam: Mucous Membranes Moist, Normal Exam - Neck Exam Neck Exam: Full ROM, Normal Inspection. absent: Lymphadenopathy - Respiratory Exam Respiratory Exam: Clear to Ausculation Bilateral, NORMAL BREATHING PATTERN - Cardiovascular Exam Cardiovascular Exam: REGULAR RHYTHM, RRR, +S1, +S2. absent: Murmur - GI/Abdominal Exam GI & Abdominal Exam: Soft, Normal Bowel Sounds. absent: Tenderness - Extremities Exam Extremities Exam: Full ROM, Normal Capillary Refill, Normal Inspection. absent : Joint Swelling, Pedal Edema - Back Exam Back Exam: NORMAL INSPECTION - Neurological Exam Neurological Exam: Alert, Awake, CN II-XII Intact, Normal Gait, Oriented x3 - Psychiatric Exam Psychiatric exam: Normal Affect, Normal Mood - Skin Skin Exam: Dry, Intact, Normal Color, Warm Assessment and Plan (1) Afib Status: Acute (2) DVT prophylaxis Status: Acute (3) Cholecystitis Status: Acute (4) Cholelithiasis Status: Acute - Assessment and Plan (Free Text) Assessment: (1) Afib Assessment and Plan: pradaxa, rate control, home meds will likely needs 5-7 days off pradaxa prior to lap ajit Status: Acute (2) DVT prophylaxis Assessment and Plan: scd nad ae hose pradaxa Status: Acute (3) Cholecystitis Assessment and Plan: zosyn pain and nausea control po as tara once cleared by surgery ? need to f/u as outpt for lap ajit r/t pradaxa Status: Acute (4) Cholelithiasis Assessment and Plan: pain and nausea control anbx surgery ?? need for outpt f/u once pradaxa stopped will d/c w/ pts cardio the dc of pradaxa Status: Acute 5-pos bc-id, cont zosyn, pending final c/s
[2017-09-27] MEDS: PROPAFENONE 425 MG PO SCH ×2 (05:35→16:39)
[2017-09-27] MEDS: Piperacillin/Tazobact 3.375 GM in Sodium Chloride 0.9% 100 ML IVPB SCH ×3 (05:36→17:37)
--- NOTE | 2017-09-27 07:32 | CP.PCM.CON ---
History of Present Illness - History of Present Illness History of Present Illness: I was asked to see patient by Dr aTy and Dr Berrios. Patient is a 56 year old male with PMH HTN, hypercholesterolemia, paroixysmal atrial fibrillation on Pradaxa who presents with abdominal pain. Patient states crampy abdominal pain began over a week ago but became progressive. He was found to have cholecystitis and require cholecystectomy. The patient denies chest pain or dyspnea. He ambulates without difficulty. Patient had his last cardioversion 4 years ago and has remained in sinus rhythm. Review of Systems - Constitutional Constitutional: absent: As Per HPI, Anorexia, Chills, Daytime Sleepiness, Excessive Sweating, Fatigue, Fever, Frequent Falls, Headache, Increased Appetite , Lethargy, Malaise, Night Sweats, Snoring, Sleep Apnea, Weight Gain, Weight Loss, Weakness, Other - EENT Eyes: absent: As Per HPI, Blind Spots, Blurred Vision, Change in Vision, Decreased Night Vision, Diplopia, Discharge, Dry Eye, Exophthalmos, Floaters, Irritation, Itchy Eyes, Loss of Peripheral Vision, Pain, Photophobia, Requires Corrective Lenses, Sees Flashes, Spots in Vision, Tunnel Vision, Other Visual Disturbances, Loss of Vision, Other Ears: absent: As Per HPI, Decreased Hearing, Ear Discharge, Ear Pain, Tinnitus, Abnormal Hearing, Disequilibrium, Dizziness, Other Nose/Mouth/Throat: absent: As Per HPI, Epistaxis, Nasal Congestion, Nasal Discharge, Nasal Obstruction, Nasal Trauma, Nose Pain, Post Nasal Drip, Sinus Pain, Sinus Pressure, Bleeding Gums, Change in Voice, Dental Pain, Dry Mouth, Dysphagia, Halitosis, Hoarsness, Lip Swelling, Mouth Lesions, Mouth Pain, Odynophagia, Sore Throat, Throat Swelling, Tongue Swelling, Facial Pain, Neck Pain, Neck Mass, Other - Cardiovascular Cardiovascular: absent: As Per HPI, Acrocyanosis, Chest Pain, Chest Pain at Rest , Chest Pain with Activity, Claudication, Diaphoresis, Dyspnea, Dyspnea on Exertion, Edema, Irregular Heart Rhythm, Pain Radiating to Arm/Neck/Jaw, Leg Edema, Leg Ulcers, Lightheadedness, Orthopnea, Palpitations, Paroxysmal Nocturnal Dyspnea, Pedal Edema, Radiating Pain, Rapid Heart Rate, Slow Heart Rate, Syncope, Other - Respiratory Respiratory: absent: As Per HPI, Cough, Dyspnea, Hemoptysis, Dyspnea on Exertion , Wheezing, Snoring, Stridor, Pain on Inspiration, Chest Congestion, Excessive Mucous Production, Change in Mucous Color, Pain with Coughing, Other - Gastrointestinal Gastrointestinal: Abdominal Pain - Genitourinary Genitourinary: absent: As Per HPI, Change in Urinary Stream, Difficulty Urinating, Dysuria, Flank Pain, Hematuria, Pyuria, Nocturia, Urinary Incontinence, Urinary Frequency, Urinary Hesitance, Urinary Urgency, Voiding Freq/Small Amts, Freq UTI, Hx Renal/Bladder Calculi, Hx /Renal Surgery, Bladder Distension, Other - Musculoskeletal Musculoskeletal: absent: As Per HPI, Abnormal Gait, Arthralgias, Atrophy, Back Pain, Deformity, Joint Swelling, Limited Range of Motion, Loss of Height, Muscle Cramps, Muscle Weakness, Myalgias, Neck Pain, Numbness, Radiating Pain into Limb, Stiffness, Tingling, Other - Integumentary Integumentary: absent: As Per HPI, Acne, Alopecia, Bleeding Lesions, Change in Hair, Change in Nails, Change in Pigmentation, Changing Lesions, Dry Skin, Erythema, Furuncle, Hirsutism, Lesions, New Lesions, Non-Healing Lesions, Photosensitivity, Pruritus, Rash, Skin Pain, Skin Ulcer, Sores, Striae, Swelling , Unusual Bruising, Wounds, Jaundice, Other - Neurological Neurological: absent: As Per HPI, Abnormal Gait, Abnormal Hearing, Abnormal Movements, Abnormal Speech, Behavioral Changes, Burning Sensations, Confusion, Convulsions, Disequilibrium, Dizziness, Numbness, Focal Weakness, Frequent Falls , Headaches, Lack of Coordination, Loss of Vision, Memory Loss, Paresthesias, Radicular Pain, Restless Legs, Sensory Deficit, Syncope, Tingling, Tremor, Vertigo, Weakness, Other Visual Disturbances, Other - Psychiatric Psychiatric: absent: As Per HPI, Abnormal Sleep Pattern, Anhedonia, Anxiety, Auditory Hallucinations, Behavioral Changes, Change in Appetite, Change in Libido, Confusion, Depression, Difficulty Concentrating, Hallucinations, Homicidal Ideation, Hopelessness, Irritability, Memory Loss, Mood Swings, Panic Attacks, Paranoia, Suicidal Ideation, Visual Hallucinations, Tactile Hallucinations, Other - Endocrine Endocrine: absent: As Per HPI, Change in Body Appearance, Change in Libido, Cold Intolorance, Deepening of Voice, Excessive Sweating, Fatigue, Flushing, Heat Intolorance, Increase in Ring/Shoe/Hat Size, Palpitations, Polydipsia, Polyphagia, Polyuria, Other - Hematologic/Lymphatic Hematologic: absent: As Per HPI, Easy Bleeding, Easy Bruising, Lymphadenopathy, Other Past Patient History - Past Medical History & Family History Past Medical History?: Yes - Past Social History Alcohol: None Drugs: Denies - CARDIAC Hx Atrial Fibrillation: Yes Hx Hypertension: Yes - PULMONARY Hx Respiratory Disorders: Yes Other/Comment: Hemoptysis back in April 2017 which resolved as per pt. - NEUROLOGICAL Hx Neurological Disorder: No - HEENT Hx HEENT Problems: No - RENAL Hx Chronic Kidney Disease: No - ENDOCRINE/METABOLIC Hx Endocrine Disorders: Yes Hx Diabetes Mellitus Type 2: Yes - HEMATOLOGICAL/ONCOLOGICAL Hx Blood Disorders: Yes Hx Hepatitis B: Yes - INTEGUMENTARY Hx Dermatological Problems: No - MUSCULOSKELETAL/RHEUMATOLOGICAL Hx Musculoskeletal Disorders: No Hx Falls: No - GASTROINTESTINAL Hx Gastrointestinal Disorders: No - GENITOURINARY/GYNECOLOGICAL Hx Genitourinary Disorders: No - PSYCHIATRIC Hx Psychophysiologic Disorder: No Hx Substance Use: No - SURGICAL HISTORY Hx Surgeries: Yes Hx Herniorrhaphy: Yes - ANESTHESIA Hx Anesthesia: Yes Hx Anesthesia Reactions: No Meds Home Medications: Home Medication List Medication Instructions Recorded Confirmed Type Amoxicillin/Clavulanate [Augmentin 1 tab PO BID #14 tab 09/25/17 Rx 875 MG-125 MG] oxyCODONE/Acetaminophen [Percocet 1 tab PO Q4 PRN #10 tab 09/25/17 Rx 5/325 mg Tab] Allergies/Adverse Reactions: Allergies Allergy/AdvReac Type Severity Reaction Status Date / Time furosemide Allergy Mild RASH Verified 09/24/17 20:27 Iodine and Iodide Containing Allergy Mild RASH Verified 09/24/17 20:27 Produc sitagliptin [From Octuv] Allergy Mild RASH Verified 09/24/17 20:27 - Medications Medications: Current Medications Acetaminophen (Tylenol 325mg Tab) 650 mg PO Q4 PRN PRN Reason: Fever >100.4 F Amlodipine Besylate (Norvasc) 10 mg PO DAILY [facility] Last Admin: 09/26/17 08:54 Dose: 10 mg Atorvastatin Calcium (Lipitor) 10 mg PO HS [facility] Last Admin: 09/26/17 21:33 Dose: 10 mg Famotidine (Pepcid) 20 mg IVP Q12 [facility] Last Admin: 09/26/17 21:33 Dose: 20 mg Home Med (Patient's Own Medication) 1 unit PO Q12@0500,1700 [facility] Last Admin: 09/27/17 05:35 Dose: 1 unit Hydromorphone HCl (Dilaudid) 1 mg IVP Q4 PRN PRN Reason: Pain, severe (8-10) Last Admin: 09/26/17 23:55 Dose: 1 mg Piperacillin Sod/Tazobactam (Sod 3.375 gm/ Sodium Chloride) 100 mls @ 100 mls/ hr IVPB Q6H [facility] PRN Reason: Protocol Last Admin: 09/27/17 05:36 Dose: 100 mls/hr Lisinopril (Zestril) 20 mg PO DAILY [facility] Last Admin: 09/26/17 08:56 Dose: 20 mg Metformin HCl (Glucophage) 750 mg PO DAILY [facility] Last Admin: 09/26/17 08:51 Dose: 750 mg Metoprolol Tartrate (Lopressor) 100 mg PO Q12 [facility] Last Admin: 09/26/17 21:33 Dose: 100 mg Morphine Sulfate (Morphine) 4 mg IVP Q4 PRN PRN Reason: Pain, moderate (4-7) Last Admin: 09/25/17 19:06 Dose: 4 mg Multivitamins/Minerals (Therapeutic-M Tab) 1 tab PO DAILY [facility] Last Admin: 09/26/17 08:56 Dose: 1 tab Ondansetron HCl (Zofran Inj) 4 mg IVP Q6 PRN PRN Reason: Nausea/Vomiting Physical Exam - Constitutional Appears: Non-toxic - Head Exam Head Exam: NORMAL INSPECTION - Eye Exam Eye Exam: Normal appearance - ENT Exam ENT Exam: Mucous Membranes Moist - Neck Exam Neck exam: Positive for: Full Rom - Respiratory Exam Respiratory Exam: NORMAL BREATHING PATTERN - Cardiovascular Exam Cardiovascular Exam: REGULAR RHYTHM - GI/Abdominal Exam GI & Abdominal Exam: Normal Bowel Sounds - Rectal Exam Rectal Exam: Deferred - Extremities Exam Extremities exam: Negative for: pedal edema - Back Exam Back exam: NORMAL INSPECTION - Neurological Exam Neurological exam: Alert, Oriented x3 - Psychiatric Exam Psychiatric exam: Normal Affect - Skin Skin Exam: Normal Color Results - Vital Signs Recent Vital Signs: Last Vital Signs Temp 98 F 09/26/17 21:33 Pulse 68 09/26/17 21:33 Resp 17 09/26/17 21:33 BP 136/83 12/02/17 21:33 Pulse Ox 97 09/26/17 21:33 - Labs Result Diagrams: 09/26/17 05:25 09/26/17 05:25 Labs: Laboratory Results - last 24 hr 09/26/17 09/26/17 09/26/17 11:24 16:22 22:03 POC Glucose (mg/dL) 110 124 H 99 09/27/17 05:40 POC Glucose (mg/dL) 94 - EKG Data EKG Interpreted by: Myself EKG shows normal: Sinus rhythm Assessment & Plan (1) Cholecystitis Assessment and Plan: patient is euvolemic and asymptomatic from a cardiac standpoint. There is no cardiovascular contraindication to the planned surgery. Of note patient can have surgery after 3 days from last Pradaxa use. Status: Acute (2) HTN (hypertension) Assessment and Plan: blood pressure controlled Status: Acute (3) Afib Assessment and Plan: in sinus rhythm. will restart Pradaxa after surgery. Status: Acute
[2017-09-27 07:35] LABS: BASO % 0.3 % (0.0-2.0); EOS # 0.3 K/uL (0.0-0.7); EOS % 4.3 % (0.0-4.0); HEMOGLOBIN 12.7 g/dL (12.0-18.0); LYMPH # 0.7 K/uL (1.0-4.3); LYMPH % 8.8 % (20.0-40.0); MEAN CELL VOLUME 97.3 fl (80.0-94.0); MEAN PLATELET VOLUME 7.9 fl (7.2-11.7); MONO # 1.1 K/uL (0.0-0.8); MONO % 13.3 % (0.0-10.0); NEUT # 5.8 K/uL (1.8-7.0); NEUT % 73.3 % (50.0-75.0); NRBC % 0.1 % (0.0-0.0); RBC 3.85 Mil/uL (4.40-5.90); RED CELL DISTRIBUTION WIDTH 12.6 % (11.5-14.5); WHITE BLOOD COUNT 7.9 K/uL (4.8-10.8)
[2017-09-27 07:43] LABS: ALT/SGPT 202 U/L (21-72); AST/SGOT 65 U/L (17-59); BLOOD UREA NITROGEN 7 mg/dl (9-20); CALCIUM 8.8 mg/dL (8.4-10.2); GFR AFRICAN-AMERICAN > 60; GFR NON-AFRICAN AMERICAN > 60
[2017-09-27] MEDS: Multivitamin With Minerals Tab PO SCH (09:14)
--- NOTE | 2017-09-27 11:37 | CP.PCM.CON ---
History of Present Illness - History of Present Illness History of Present Illness: 56 yo male with bacteremia/ sepsis from Gallbladder 56M presented to ER for fevers, nausea, and right sided flank and abd pain x 6 days. Pain was intermittent at first and feels like a sharp, stabbing pain on the right side of his abdomen. 3 days ago, the pain really began increasing to a severe point but he thought it would go away. Eventually decided to come to ED. + chills, emesis, dark colored urine, light colored stool. Denies chest pain , SOB, and other complaints. Reported he had hemoptysis in May that has since gone away. PMH: Hep B since childhood, DM, HTN, A Fib PSH: L inguinal hernia SH: Former smoker quit 20 yrs ago, Occasional EtOH, no drug use All: furosemide, iodine, sitagliptin pradaxa Meds: See MAR Review of Systems - Constitutional Constitutional: As Per HPI, Anorexia, Chills, Fever - EENT Eyes: absent: As Per HPI, Blind Spots, Blurred Vision, Change in Vision, Decreased Night Vision, Diplopia, Discharge, Dry Eye, Exophthalmos, Floaters, Irritation, Itchy Eyes, Loss of Peripheral Vision, Pain, Photophobia, Requires Corrective Lenses, Sees Flashes, Spots in Vision, Tunnel Vision, Other Visual Disturbances, Loss of Vision, Other Ears: absent: As Per HPI, Decreased Hearing, Ear Discharge, Ear Pain, Tinnitus, Abnormal Hearing, Disequilibrium, Dizziness, Other Nose/Mouth/Throat: absent: As Per HPI, Epistaxis, Nasal Congestion, Nasal Discharge, Nasal Obstruction, Nasal Trauma, Nose Pain, Post Nasal Drip, Sinus Pain, Sinus Pressure, Bleeding Gums, Change in Voice, Dental Pain, Dry Mouth, Dysphagia, Halitosis, Hoarsness, Lip Swelling, Mouth Lesions, Mouth Pain, Odynophagia, Sore Throat, Throat Swelling, Tongue Swelling, Facial Pain, Neck Pain, Neck Mass, Other - Cardiovascular Cardiovascular: absent: As Per HPI, Acrocyanosis, Chest Pain, Chest Pain at Rest , Chest Pain with Activity, Claudication, Diaphoresis, Dyspnea, Dyspnea on Exertion, Edema, Irregular Heart Rhythm, Pain Radiating to Arm/Neck/Jaw, Leg Edema, Leg Ulcers, Lightheadedness, Orthopnea, Palpitations, Paroxysmal Nocturnal Dyspnea, Pedal Edema, Radiating Pain, Rapid Heart Rate, Slow Heart Rate, Syncope, Other - Respiratory Respiratory: absent: As Per HPI, Cough, Dyspnea, Hemoptysis, Dyspnea on Exertion , Wheezing, Snoring, Stridor, Pain on Inspiration, Chest Congestion, Excessive Mucous Production, Change in Mucous Color, Pain with Coughing, Other - Gastrointestinal Gastrointestinal: As Per HPI, Abdominal Pain - Genitourinary Genitourinary: absent: As Per HPI, Change in Urinary Stream, Difficulty Urinating, Dysuria, Flank Pain, Hematuria, Pyuria, Nocturia, Urinary Incontinence, Urinary Frequency, Urinary Hesitance, Urinary Urgency, Voiding Freq/Small Amts, Freq UTI, Hx Renal/Bladder Calculi, Hx /Renal Surgery, Bladder Distension, Other - Musculoskeletal Musculoskeletal: absent: As Per HPI, Abnormal Gait, Arthralgias, Atrophy, Back Pain, Deformity, Joint Swelling, Limited Range of Motion, Loss of Height, Muscle Cramps, Muscle Weakness, Myalgias, Neck Pain, Numbness, Radiating Pain into Limb, Stiffness, Tingling, Other - Integumentary Integumentary: absent: As Per HPI, Acne, Alopecia, Bleeding Lesions, Change in Hair, Change in Nails, Change in Pigmentation, Changing Lesions, Dry Skin, Erythema, Furuncle, Hirsutism, Lesions, New Lesions, Non-Healing Lesions, Photosensitivity, Pruritus, Rash, Skin Pain, Skin Ulcer, Sores, Striae, Swelling , Unusual Bruising, Wounds, Jaundice, Other - Neurological Neurological: absent: As Per HPI, Abnormal Gait, Abnormal Hearing, Abnormal Movements, Abnormal Speech, Behavioral Changes, Burning Sensations, Confusion, Convulsions, Disequilibrium, Dizziness, Numbness, Focal Weakness, Frequent Falls , Headaches, Lack of Coordination, Loss of Vision, Memory Loss, Paresthesias, Radicular Pain, Restless Legs, Sensory Deficit, Syncope, Tingling, Tremor, Vertigo, Weakness, Other Visual Disturbances, Other - Psychiatric Psychiatric: absent: As Per HPI, Abnormal Sleep Pattern, Anhedonia, Anxiety, Auditory Hallucinations, Behavioral Changes, Change in Appetite, Change in Libido, Confusion, Depression, Difficulty Concentrating, Hallucinations, Homicidal Ideation, Hopelessness, Irritability, Memory Loss, Mood Swings, Panic Attacks, Paranoia, Suicidal Ideation, Visual Hallucinations, Tactile Hallucinations, Other - Endocrine Endocrine: absent: As Per HPI, Change in Body Appearance, Change in Libido, Cold Intolorance, Deepening of Voice, Excessive Sweating, Fatigue, Flushing, Heat Intolorance, Increase in Ring/Shoe/Hat Size, Palpitations, Polydipsia, Polyphagia, Polyuria, Other - Hematologic/Lymphatic Hematologic: absent: As Per HPI, Easy Bleeding, Easy Bruising, Lymphadenopathy, Other Past Patient History - Past Medical History & Family History Past Medical History?: Yes - Past Social History Alcohol: None Drugs: Denies - CARDIAC Hx Atrial Fibrillation: Yes Hx Hypertension: Yes - PULMONARY Hx Respiratory Disorders: Yes Other/Comment: Hemoptysis back in April 2017 which resolved as per pt. - NEUROLOGICAL Hx Neurological Disorder: No - HEENT Hx HEENT Problems: No - RENAL Hx Chronic Kidney Disease: No - ENDOCRINE/METABOLIC Hx Endocrine Disorders: Yes Hx Diabetes Mellitus Type 2: Yes - HEMATOLOGICAL/ONCOLOGICAL Hx Blood Disorders: Yes Hx Hepatitis B: Yes - INTEGUMENTARY Hx Dermatological Problems: No - MUSCULOSKELETAL/RHEUMATOLOGICAL Hx Musculoskeletal Disorders: No Hx Falls: No - GASTROINTESTINAL Hx Gastrointestinal Disorders: No - GENITOURINARY/GYNECOLOGICAL Hx Genitourinary Disorders: No - PSYCHIATRIC Hx Psychophysiologic Disorder: No Hx Substance Use: No - SURGICAL HISTORY Hx Surgeries: Yes Hx Herniorrhaphy: Yes - ANESTHESIA Hx Anesthesia: Yes Hx Anesthesia Reactions: No Meds Home Medications: Home Medication List Medication Instructions Recorded Confirmed Type Amoxicillin/Clavulanate [Augmentin 1 tab PO BID #14 tab 09/25/17 Rx 875 MG-125 MG] oxyCODONE/Acetaminophen [Percocet 1 tab PO Q4 PRN #10 tab 09/25/17 Rx 5/325 mg Tab] Allergies/Adverse Reactions: Allergies Allergy/AdvReac Type Severity Reaction Status Date / Time furosemide Allergy Mild RASH Verified 09/24/17 20:27 Iodine and Iodide Containing Allergy Mild RASH Verified 09/24/17 20:27 Produc sitagliptin [From ] Allergy Mild RASH Verified 09/24/17 20:27 - Medications Medications: Current Medications Acetaminophen (Tylenol 325mg Tab) 650 mg PO Q4 PRN PRN Reason: Fever >100.4 F Amlodipine Besylate (Norvasc) 10 mg PO DAILY [facility] Last Admin: 09/27/17 09:13 Dose: 10 mg Atorvastatin Calcium (Lipitor) 10 mg PO HS [facility] Last Admin: 09/26/17 21:33 Dose: 10 mg Famotidine (Pepcid) 20 mg IVP Q12 [facility] Last Admin: 09/27/17 09:13 Dose: 20 mg Home Med (Patient's Own Medication) 1 unit PO Q12@0500,1700 [facility] Last Admin: 09/27/17 05:35 Dose: 1 unit Hydromorphone HCl (Dilaudid) 1 mg IVP Q4 PRN PRN Reason: Pain, severe (8-10) Last Admin: 09/26/17 23:55 Dose: 1 mg Piperacillin Sod/Tazobactam (Sod 3.375 gm/ Sodium Chloride) 100 mls @ 100 mls/ hr IVPB Q6H [facility] PRN Reason: Protocol Last Admin: 09/27/17 05:36 Dose: 100 mls/hr Lisinopril (Zestril) 20 mg PO DAILY [facility] Last Admin: 09/27/17 09:14 Dose: 20 mg Metformin HCl (Glucophage) 750 mg PO DAILY [facility] Last Admin: 09/27/17 09:11 Dose: 750 mg Metoprolol Tartrate (Lopressor) 100 mg PO Q12 [facility] Last Admin: 09/27/17 09:12 Dose: 100 mg Morphine Sulfate (Morphine) 4 mg IVP Q4 PRN PRN Reason: Pain, moderate (4-7) Last Admin: 09/25/17 19:06 Dose: 4 mg Multivitamins/Minerals (Therapeutic-M Tab) 1 tab PO DAILY [facility] Last Admin: 09/27/17 09:14 Dose: 1 tab Ondansetron HCl (Zofran Inj) 4 mg IVP Q6 PRN PRN Reason: Nausea/Vomiting Physical Exam - Constitutional Appears: Non-toxic, Chronically Ill - Head Exam Head Exam: ATRAUMATIC, NORMAL INSPECTION, NORMOCEPHALIC - Eye Exam Eye Exam: EOMI, PERRL. absent: Scleral icterus - ENT Exam ENT Exam: Mucous Membranes Dry, Normal External Ear Exam - Neck Exam Neck exam: Negative for: Lymphadenopathy, Thyromegaly - Respiratory Exam Respiratory Exam: Decreased Breath Sounds, Clear to Auscultation Bilateral - Cardiovascular Exam Cardiovascular Exam: REGULAR RHYTHM, +S1, +S2 - GI/Abdominal Exam GI & Abdominal Exam: Diminished Bowel Sounds, Distended, Guarding, Soft, Tenderness. absent: Rebound, Rigid - Rectal Exam Rectal Exam: Deferred - Exam Exam: NORMAL INSPECTION - Extremities Exam Extremities exam: Positive for: pedal pulses present. Negative for: calf tenderness, pedal edema, tenderness - Back Exam Back exam: absent: CVA tenderness (L), CVA tenderness (R), paraspinal tenderness - Neurological Exam Neurological exam: Alert, CN II-XII Intact, Oriented x3, Reflexes Normal - Psychiatric Exam Psychiatric exam: Normal Mood - Skin Skin Exam: Dry Results - Vital Signs Recent Vital Signs: Last Vital Signs Temp 98.6 F 09/27/17 08:25 Pulse 68 09/27/17 09:14 Resp 20 09/27/17 08:25 BP 157/88 H 09/27/17 09:14 Pulse Ox 96 09/27/17 08:25 - Labs Result Diagrams: 09/30/17 06:55 09/30/17 06:55 Labs: Laboratory Results - last 24 hr 09/26/17 09/26/17 09/26/17 11:24 16:22 22:03 WBC RBC Hgb Hct MCV MCH MCHC RDW Plt Count MPV Neut % (Auto) Lymph % (Auto) [place] % (Auto) Eos % (Auto) Baso % (Auto) Neut # Lymph # [place] # Eos # Baso # Sodium Potassium Chloride Carbon Dioxide Anion Gap BUN Creatinine Est GFR ( Amer) Est GFR (Non-Af Amer) POC Glucose (mg/dL) 110 124 H 99 Random Glucose Calcium Total Bilirubin AST ALT Alkaline Phosphatase Total Protein Albumin Globulin Albumin/Globulin Ratio 09/27/17 09/27/17 09/27/17 05:40 06:30 06:30 WBC 7.9 RBC 3.85 L Hgb 12.7 Hct 37.4 MCV 97.3 H MCH 33.0 H MCHC 34.0 RDW 12.6 Plt Count 185 MPV 7.9 Neut % (Auto) 73.3 Lymph % (Auto) 8.8 L [place] % (Auto) 13.3 H Eos % (Auto) 4.3 H Baso % (Auto) 0.3 Neut # 5.8 Lymph # 0.7 L [place] # 1.1 H Eos # 0.3 Baso # 0.0 Sodium 138 Potassium 3.6 Chloride 100 Carbon Dioxide 27 Anion Gap 15 BUN 7 L Creatinine 0.8 Est GFR ( Amer) > 60 Est GFR (Non-Af Amer) > 60 POC Glucose (mg/dL) 94 Random Glucose 113 H Calcium 8.8 Total Bilirubin 1.8 H AST 65 H D ALT 202 H D Alkaline Phosphatase 127 H Total Protein 7.8 Albumin 4.0 Globulin 3.9 Albumin/Globulin Ratio 1.0 Assessment & Plan (1) Diabetes Status: Acute (2) Afib Status: Acute (3) Cholecystitis Status: Acute (4) Cholelithiasis Status: Acute (5) HTN (hypertension) Status: Acute (6) E. coli bacteremia Status: Acute - Assessment and Plan (Free Text) Assessment: cont iv rx for E Coli bacteremia / sepsis pradaxa on hold possible cholecystectomy this week
--- NOTE | 2017-09-27 11:58 | CP.PCM.PN ---
Subjective - Date & Time of Evaluation Date of Evaluation: 09/27/17 Time of Evaluation: 11:35 - Subjective Subjective: Patient was seen and examined at the bedside. States that feels better. Objective - Vital Signs/Intake and Output Vital Signs (last 24 hours): Temp Pulse Resp BP Pulse Ox 98.6 F 68 20 157/88 H 96 09/27/17 08:25 09/27/17 09:14 09/27/17 08:25 09/27/17 09:14 09/27/17 08:25 - Medications Medications: Current Medications Acetaminophen (Tylenol 325mg Tab) 650 mg PO Q4 PRN PRN Reason: Fever >100.4 F Amlodipine Besylate (Norvasc) 10 mg PO DAILY [facility] Last Admin: 09/27/17 09:13 Dose: 10 mg Atorvastatin Calcium (Lipitor) 10 mg PO HS [facility] Last Admin: 09/26/17 21:33 Dose: 10 mg Famotidine (Pepcid) 20 mg IVP Q12 [facility] Last Admin: 09/27/17 09:13 Dose: 20 mg Home Med (Patient's Own Medication) 1 unit PO Q12@0500,1700 [facility] Last Admin: 09/27/17 05:35 Dose: 1 unit Hydromorphone HCl (Dilaudid) 1 mg IVP Q4 PRN PRN Reason: Pain, severe (8-10) Last Admin: 09/26/17 23:55 Dose: 1 mg Piperacillin Sod/Tazobactam (Sod 3.375 gm/ Sodium Chloride) 100 mls @ 100 mls/ hr IVPB Q6H [facility] PRN Reason: Protocol Last Admin: 09/27/17 05:36 Dose: 100 mls/hr Lisinopril (Zestril) 20 mg PO DAILY [facility] Last Admin: 09/27/17 09:14 Dose: 20 mg Metformin HCl (Glucophage) 750 mg PO DAILY [facility] Last Admin: 09/27/17 09:11 Dose: 750 mg Metoprolol Tartrate (Lopressor) 100 mg PO Q12 [facility] Last Admin: 09/27/17 09:12 Dose: 100 mg Morphine Sulfate (Morphine) 4 mg IVP Q4 PRN PRN Reason: Pain, moderate (4-7) Last Admin: 09/25/17 19:06 Dose: 4 mg Multivitamins/Minerals (Therapeutic-M Tab) 1 tab PO DAILY [facility] Last Admin: 09/27/17 09:14 Dose: 1 tab Ondansetron HCl (Zofran Inj) 4 mg IVP Q6 PRN PRN Reason: Nausea/Vomiting - Labs Labs: 09/27/17 06:30 09/27/17 06:30 PT 13.6 Seconds (9.8-13.1) H 09/25/17 06:15 INR 1.2 (0.9-1.2) 09/25/17 06:15 APTT 49.7 Seconds (25.6-37.1) H 09/25/17 06:15 - Constitutional Appears: Well, Non-toxic, No Acute Distress - Head Exam Head Exam: ATRAUMATIC, NORMAL INSPECTION, NORMOCEPHALIC - Eye Exam Eye Exam: EOMI, Normal appearance, PERRL Pupil Exam: NORMAL ACCOMODATION, PERRL - ENT Exam ENT Exam: Mucous Membranes Moist, Normal Exam - Neck Exam Neck Exam: Full ROM, Normal Inspection - Respiratory Exam Respiratory Exam: Clear to Ausculation Bilateral, NORMAL BREATHING PATTERN - Cardiovascular Exam Cardiovascular Exam: +S1, +S2 - GI/Abdominal Exam GI & Abdominal Exam: Soft, Normal Bowel Sounds Additional comments: very mildly tender in the RUQ, ND, no rebound, no guarding, negative Martinez's sign - Rectal Exam Rectal Exam: Deferred - Extremities Exam Extremities Exam: Full ROM, Normal Inspection - Back Exam Back Exam: NORMAL INSPECTION - Neurological Exam Neurological Exam: Alert, Awake, Oriented x3 - Psychiatric Exam Psychiatric exam: Normal Affect, Normal Mood - Skin Skin Exam: Dry, Intact, Normal Color, Warm Assessment and Plan - Assessment and Plan (Free Text) Assessment: 56 y.o. male with cholecystitis Plan: - Continue diet - Pain control - Continue antibiotics - Hold any anticoagulation - Monitor LFTs - Will require cholecystectomy early this week - Repeat labs in am - Will follow
--- NOTE | 2017-09-27 12:17 | CP.PCM.PN ---
Subjective - Date & Time of Evaluation Date of Evaluation: 09/27/17 Time of Evaluation: 12:17 - Subjective Subjective: pt doing well, pain only w/ eating. now on liquid diet and states w/o pain. no f /c, n/v/d. e coli isolated in bc. per dr mayra gomez to cont for now x 2 wks. picc to be inserted. bw noted Objective - Vital Signs/Intake and Output Vital Signs (last 24 hours): Temp Pulse Resp BP Pulse Ox 98.6 F 68 20 157/88 H 96 09/27/17 08:25 09/27/17 09:14 09/27/17 08:25 09/27/17 09:14 09/27/17 08:25 - Medications Medications: Current Medications Acetaminophen (Tylenol 325mg Tab) 650 mg PO Q4 PRN PRN Reason: Fever >100.4 F Amlodipine Besylate (Norvasc) 10 mg PO DAILY [facility] Last Admin: 09/27/17 09:13 Dose: 10 mg Atorvastatin Calcium (Lipitor) 10 mg PO HS [facility] Last Admin: 09/26/17 21:33 Dose: 10 mg Famotidine (Pepcid) 20 mg IVP Q12 [facility] Last Admin: 09/27/17 09:13 Dose: 20 mg Home Med (Patient's Own Medication) 1 unit PO Q12@0500,1700 [facility] Last Admin: 09/27/17 05:35 Dose: 1 unit Hydromorphone HCl (Dilaudid) 1 mg IVP Q4 PRN PRN Reason: Pain, severe (8-10) Last Admin: 09/26/17 23:55 Dose: 1 mg Piperacillin Sod/Tazobactam (Sod 3.375 gm/ Sodium Chloride) 100 mls @ 100 mls/ hr IVPB Q6H [facility] PRN Reason: Protocol Last Admin: 09/27/17 05:36 Dose: 100 mls/hr Lisinopril (Zestril) 20 mg PO DAILY [facility] Last Admin: 09/27/17 09:14 Dose: 20 mg Metformin HCl (Glucophage) 750 mg PO DAILY [facility] Last Admin: 09/27/17 09:11 Dose: 750 mg Metoprolol Tartrate (Lopressor) 100 mg PO Q12 [facility] Last Admin: 09/27/17 09:12 Dose: 100 mg Morphine Sulfate (Morphine) 4 mg IVP Q4 PRN PRN Reason: Pain, moderate (4-7) Last Admin: 09/25/17 19:06 Dose: 4 mg Multivitamins/Minerals (Therapeutic-M Tab) 1 tab PO DAILY [facility] Last Admin: 09/27/17 09:14 Dose: 1 tab Ondansetron HCl (Zofran Inj) 4 mg IVP Q6 PRN PRN Reason: Nausea/Vomiting - Labs Labs: 09/27/17 06:30 09/27/17 06:30 PT 13.6 Seconds (9.8-13.1) H 09/25/17 06:15 INR 1.2 (0.9-1.2) 09/25/17 06:15 APTT 49.7 Seconds (25.6-37.1) H 09/25/17 06:15 - Constitutional Appears: Well, Non-toxic, No Acute Distress - Head Exam Head Exam: ATRAUMATIC, NORMAL INSPECTION, NORMOCEPHALIC - Eye Exam Eye Exam: EOMI, Normal appearance, PERRL Pupil Exam: NORMAL ACCOMODATION, PERRL - ENT Exam ENT Exam: Mucous Membranes Moist, Normal Exam - Neck Exam Neck Exam: Full ROM, Normal Inspection. absent: Lymphadenopathy - Respiratory Exam Respiratory Exam: Clear to Ausculation Bilateral, NORMAL BREATHING PATTERN - Cardiovascular Exam Cardiovascular Exam: REGULAR RHYTHM, RRR, +S1, +S2. absent: Murmur - GI/Abdominal Exam GI & Abdominal Exam: Soft, Normal Bowel Sounds. absent: Tenderness - Extremities Exam Extremities Exam: Full ROM, Normal Capillary Refill, Normal Inspection. absent : Joint Swelling, Pedal Edema - Back Exam Back Exam: NORMAL INSPECTION - Neurological Exam Neurological Exam: Alert, Awake, CN II-XII Intact, Normal Gait, Oriented x3 - Psychiatric Exam Psychiatric exam: Normal Affect, Normal Mood - Skin Skin Exam: Dry, Intact, Normal Color, Warm Assessment and Plan (1) Afib Status: Acute (2) DVT prophylaxis Status: Acute (3) Cholecystitis Status: Acute (4) Cholelithiasis Status: Acute - Assessment and Plan (Free Text) Assessment: (1) Afib Assessment and Plan: pradaxa, rate control, home meds will likely needs 5-7 days off pradaxa prior to lap ajit cardio note appriciated Status: Acute (2) DVT prophylaxis Assessment and Plan: scd nad ae hose pradaxa Status: Acute (3) Cholecystitis Assessment and Plan: zosyn pain and nausea control po as tara once cleared by surgery ? need to f/u as outpt for lap ajit r/t pradaxa likely surgery tues Status: Acute (4) Cholelithiasis Assessment and Plan: pain and nausea control anbx surgery ?? need for outpt f/u once pradaxa stopped will d/c w/ pts cardio the dc of pradaxa Status: Acute 5-pos bc-id, cont zosyn, ec jhon in [place]. anbx x 2 wks. picc
[2017-09-28] MEDS: Piperacillin/Tazobact 3.375 GM in Sodium Chloride 0.9% 100 ML IVPB SCH ×4 (00:40→17:23)
[2017-09-28] MEDS: PROPAFENONE 425 MG PO SCH ×2 (05:34→17:18)
[2017-09-28 06:06] LABS: BASO # 0.1 K/uL (0.0-0.2); BASO % 0.9 % (0.0-2.0); EOS # 0.4 K/uL (0.0-0.7); EOS % 5.7 % (0.0-4.0); HEMOGLOBIN 12.8 g/dL (12.0-18.0); LYMPH # 1.2 K/uL (1.0-4.3); LYMPH % 17.7 % (20.0-40.0); MEAN CELL VOLUME 96.6 fl (80.0-94.0); MEAN CORPUSCULAR HEMOGLOBIN 32.5 pg (27.0-31.0); MEAN CORPUSCULAR HGB CONC 33.6 g/dL (33.0-37.0); MEAN PLATELET VOLUME 7.5 fl (7.2-11.7); MONO # 1.2 K/uL (0.0-0.8); MONO % 18.5 % (0.0-10.0); NEUT # 3.8 K/uL (1.8-7.0); NEUT % 57.2 % (50.0-75.0); NRBC % 0.1 % (0.0-0.0); RBC 3.95 Mil/uL (4.40-5.90); RED CELL DISTRIBUTION WIDTH 12.8 % (11.5-14.5); WHITE BLOOD COUNT 6.7 K/uL (4.8-10.8)
[2017-09-28 06:20] LABS: INR 1.1 (0.9-1.2); PARTIAL THROMBOPLASTIN TIME 32.9 Seconds (25.6-37.1); PROTHROMBIN TIME 12.1 Seconds (9.8-13.1)
[2017-09-28 06:30] LABS: ALT/SGPT 166 U/L (21-72); AST/SGOT 55 U/L (17-59); BLOOD UREA NITROGEN 7 mg/dl (9-20); CALCIUM 8.9 mg/dL (8.4-10.2); GFR AFRICAN-AMERICAN > 60; GFR NON-AFRICAN AMERICAN > 60
[2017-09-28] MEDS ORDERED: Potassium Chloride 20 mEq ER Tab PO ONE (06:33)
--- NOTE | 2017-09-28 08:15 | CP.PCM.PN ---
Subjective - Date & Time of Evaluation Date of Evaluation: 09/28/17 Time of Evaluation: 08:14 - Subjective Subjective: doignwe ll, w/o pain. no f/c, n/v/d. bw noted. lft almost normalized. pt states does not wish for picc r/t possible infection/afib. med cleared for surgery Objective - Vital Signs/Intake and Output Vital Signs (last 24 hours): Temp Pulse Resp BP Pulse Ox 98.2 F 69 20 156/89 H 96 09/28/17 08:03 09/28/17 08:03 09/28/17 08:03 09/28/17 08:03 09/28/17 08:03 - Medications Medications: Current Medications Acetaminophen (Tylenol 325mg Tab) 650 mg PO Q4 PRN PRN Reason: Fever >100.4 F Amlodipine Besylate (Norvasc) 10 mg PO DAILY [facility] Last Admin: 09/27/17 09:13 Dose: 10 mg Atorvastatin Calcium (Lipitor) 10 mg PO HS [facility] Last Admin: 09/27/17 22:05 Dose: 10 mg Famotidine (Pepcid) 20 mg IVP Q12 [facility] Last Admin: 09/27/17 22:02 Dose: 20 mg Home Med (Patient's Own Medication) 1 unit PO Q12@0500,1700 [facility] Last Admin: 09/28/17 05:34 Dose: 1 unit Hydromorphone HCl (Dilaudid) 1 mg IVP Q4 PRN PRN Reason: Pain, severe (8-10) Last Admin: 09/28/17 00:41 Dose: 1 mg Piperacillin Sod/Tazobactam (Sod 3.375 gm/ Sodium Chloride) 100 mls @ 100 mls/ hr IVPB Q6H [facility] PRN Reason: Protocol Last Admin: 09/28/17 05:34 Dose: 100 mls/hr Lisinopril (Zestril) 20 mg PO DAILY [facility] Last Admin: 09/27/17 09:14 Dose: 20 mg Metformin HCl (Glucophage) 750 mg PO DAILY [facility] Last Admin: 09/27/17 09:11 Dose: 750 mg Metoprolol Tartrate (Lopressor) 100 mg PO Q12 [facility] Last Admin: 09/27/17 22:05 Dose: 100 mg Morphine Sulfate (Morphine) 4 mg IVP Q4 PRN PRN Reason: Pain, moderate (4-7) Last Admin: 09/25/17 19:06 Dose: 4 mg Multivitamins/Minerals (Therapeutic-M Tab) 1 tab PO DAILY [facility] Last Admin: 09/27/17 09:14 Dose: 1 tab Ondansetron HCl (Zofran Inj) 4 mg IVP Q6 PRN PRN Reason: Nausea/Vomiting - Labs Labs: 09/28/17 05:45 09/28/17 05:45 PT 12.1 Seconds (9.8-13.1) 09/28/17 05:45 INR 1.1 (0.9-1.2) 09/28/17 05:45 APTT 32.9 Seconds (25.6-37.1) D 09/28/17 05:45 - Constitutional Appears: Well, Non-toxic, No Acute Distress - Head Exam Head Exam: ATRAUMATIC, NORMAL INSPECTION, NORMOCEPHALIC - Eye Exam Eye Exam: EOMI, Normal appearance, PERRL Pupil Exam: NORMAL ACCOMODATION, PERRL - ENT Exam ENT Exam: Mucous Membranes Moist, Normal Exam - Neck Exam Neck Exam: Full ROM, Normal Inspection. absent: Lymphadenopathy - Respiratory Exam Respiratory Exam: Clear to Ausculation Bilateral, NORMAL BREATHING PATTERN - Cardiovascular Exam Cardiovascular Exam: REGULAR RHYTHM, RRR, +S1, +S2. absent: Murmur - GI/Abdominal Exam GI & Abdominal Exam: Soft, Normal Bowel Sounds. absent: Tenderness - Extremities Exam Extremities Exam: Full ROM, Normal Capillary Refill, Normal Inspection. absent : Joint Swelling, Pedal Edema - Back Exam Back Exam: NORMAL INSPECTION - Neurological Exam Neurological Exam: Alert, Awake, CN II-XII Intact, Normal Gait, Oriented x3 - Psychiatric Exam Psychiatric exam: Normal Affect, Normal Mood - Skin Skin Exam: Dry, Intact, Normal Color, Warm Assessment and Plan (1) Afib Status: Acute (2) DVT prophylaxis Status: Acute (3) Cholecystitis Status: Acute (4) Cholelithiasis Status: Acute - Assessment and Plan (Free Text) Assessment: (1) Afib Assessment and Plan: pradaxa, rate control, home meds will likely needs 5-7 days off pradaxa prior to lap ajit cardio note appriciated Status: Acute (2) DVT prophylaxis Assessment and Plan: scd nad ae hose pradaxa Status: Acute (3) Cholecystitis Assessment and Plan: zosyn pain and nausea control po as tara once cleared by surgery ? need to f/u as outpt for lap ajit r/t pradaxa likely surgery tues medically cleared Status: Acute (4) Cholelithiasis Assessment and Plan: pain and nausea control anbx surgery ?? need for outpt f/u once pradaxa stopped will d/c w/ pts cardio the dc of pradaxa Status: Acute 5-pos bc-id, cont zosyn, ec jhon in [place]. anbx x 2 wks. refused picc. wishes for outpt [facility] infusion center w/ peripheral access daily. CM aware
[2017-09-28] MEDS: Multivitamin With Minerals Tab PO SCH (09:06)
--- NOTE | 2017-09-28 11:12 | CP.PCM.PN ---
Subjective - Date & Time of Evaluation Date of Evaluation: 09/28/17 Time of Evaluation: 07:00 - Subjective Subjective: GENERAL SURGERY PROGRESS NOTE FOR DR. WORLEY Patient seen and examined at bedside. He is ambulating. He had some nausea after eating but it resolved. He denies abdominal pain currently. Denies vomiting. Objective - Vital Signs/Intake and Output Vital Signs (last 24 hours): Temp Pulse Resp BP Pulse Ox 98.2 F 69 20 156/89 H 96 09/28/17 08:03 09/28/17 08:03 09/28/17 08:03 09/28/17 08:03 09/28/17 08:03 - Medications Medications: Current Medications Acetaminophen (Tylenol 325mg Tab) 650 mg PO Q4 PRN PRN Reason: Fever >100.4 F Amlodipine Besylate (Norvasc) 10 mg PO DAILY [facility] Last Admin: 09/28/17 09:08 Dose: 10 mg Atorvastatin Calcium (Lipitor) 10 mg PO HS [facility] Last Admin: 09/27/17 22:05 Dose: 10 mg Famotidine (Pepcid) 20 mg IVP Q12 [facility] Last Admin: 09/28/17 09:11 Dose: 20 mg Home Med (Patient's Own Medication) 1 unit PO Q12@0500,1700 [facility] Last Admin: 09/28/17 05:34 Dose: 1 unit Hydromorphone HCl (Dilaudid) 1 mg IVP Q4 PRN PRN Reason: Pain, severe (8-10) Last Admin: 09/28/17 10:57 Dose: 1 mg Piperacillin Sod/Tazobactam (Sod 3.375 gm/ Sodium Chloride) 100 mls @ 100 mls/ hr IVPB Q6H [facility] PRN Reason: Protocol Last Admin: 09/28/17 11:01 Dose: 100 mls/hr Lisinopril (Zestril) 20 mg PO DAILY [facility] Last Admin: 09/28/17 09:07 Dose: 20 mg Metformin HCl (Glucophage) 750 mg PO DAILY [facility] Last Admin: 09/28/17 09:07 Dose: 750 mg Metoprolol Tartrate (Lopressor) 100 mg PO Q12 [facility] Last Admin: 09/28/17 09:07 Dose: 100 mg Morphine Sulfate (Morphine) 4 mg IVP Q4 PRN PRN Reason: Pain, moderate (4-7) Last Admin: 09/25/17 19:06 Dose: 4 mg Multivitamins/Minerals (Therapeutic-M Tab) 1 tab PO DAILY [facility] Last Admin: 09/28/17 09:06 Dose: 1 tab Ondansetron HCl (Zofran Inj) 4 mg IVP Q6 PRN PRN Reason: Nausea/Vomiting - Labs Labs: 09/28/17 05:45 09/28/17 05:45 PT 12.1 Seconds (9.8-13.1) 09/28/17 05:45 INR 1.1 (0.9-1.2) 09/28/17 05:45 APTT 32.9 Seconds (25.6-37.1) D 09/28/17 05:45 - Constitutional Appears: Non-toxic, No Acute Distress - Head Exam Head Exam: ATRAUMATIC, NORMAL INSPECTION - Eye Exam Eye Exam: EOMI, Normal appearance - Respiratory Exam Respiratory Exam: NORMAL BREATHING PATTERN. absent: Respiratory Distress - Cardiovascular Exam Cardiovascular Exam: +S1, +S2 - GI/Abdominal Exam GI & Abdominal Exam: Soft. absent: Distended, Firm, Guarding, Rigid, Tenderness , Rebound - Neurological Exam Neurological Exam: Alert, Awake, Oriented x3 - Psychiatric Exam Psychiatric exam: Normal Affect, Normal Mood - Skin Skin Exam: Dry, Normal Color, Warm Assessment and Plan - Assessment and Plan (Free Text) Assessment: 56yo M with cholelithiasis and E. coli bacteremia - Afebrile, VSS - No leukocytosis - T bili trending down - Continue IV antibiotics - Hold anticoagulation - Plan for OR for lap ajit - Low fat diet for now - Discussed plan with Dr. Ho Watt PGY-3
[2017-09-28 11:49] LABS: HEPATITIS B SURFACE AG NEGATIVE (NEGATIVE)
--- NOTE | 2017-09-28 12:59 | PQF GENQUE ---
This form is a permanent part of the medical record 09/28/17 Joaquin Tay GALVANIZER, Admitted with fever, chills, nausea, vomiting, right sided flank and abdominal pain and dark colored urine. Temp 102.9, HR 103, WBC 7.2 with a L shift and lactic acid of 2.4. MRCP: Cholelithiasis without MR evidence for acute cholecystitis or choledocholithiasis. Blood CS x 1 growing E Coli.Treated with IVAB. Attending: Positive REYNA Surgical Consult: Bacteremia ID Consult: E. Coli Bacteremia/Sepsis Would you please clarify which of the above diagnoses are ruled in or ruled out. Clarification of your documentation is requested to better reflect the severity of illness and intensity of treatment of your patient. Indicators present [] Specify: [] [] Specify: [] [] Specify: [] [] Specify: [] Location in the medical record that reflects the above clinical findings: [] Treatment Provided: [] PHYSICIAN'S RESPONSE Based on your medical judgment of the clinical indicators outlined above please clarify the following: [] Practitioner response dx bacteremia due to e coli. likely from cholecystitis [] If unable to determine, please check the box, sign and date. Present On Admission (POA) Indicator: [] Present at the time of admission [] Not present at the time of admission [] Clinically Undetermined In responding to this query, please exercise your independent professional judgment. The fact that a question is asked does not imply that any particular answer is desired or expected. Thank you for your clarification on this documentation. If you have any questions please call:extension [phone] * Thank you, Angela Choi RN [facility]
[2017-09-29] MEDS: Piperacillin/Tazobact 3.375 GM in Sodium Chloride 0.9% 100 ML IVPB SCH ×4 (00:09→17:00)
[2017-09-29] MEDS: PROPAFENONE 425 MG PO SCH ×2 (05:25→17:00)
[2017-09-29 06:10] LABS: BASO % 0.7 % (0.0-2.0); EOS # 0.4 K/uL (0.0-0.7); EOS % 5.9 % (0.0-4.0); LYMPH # 1.2 K/uL (1.0-4.3); MEAN CELL VOLUME 96.2 fl (80.0-94.0); MEAN CORPUSCULAR HEMOGLOBIN 32.5 pg (27.0-31.0); MEAN CORPUSCULAR HGB CONC 33.8 g/dL (33.0-37.0); MEAN PLATELET VOLUME 7.4 fl (7.2-11.7); MONO # 1.4 K/uL (0.0-0.8); MONO % 20.7 % (0.0-10.0); NEUT # 3.8 K/uL (1.8-7.0); NEUT % 54.7 % (50.0-75.0); PLATELET COUNT 251 K/uL (130-400); RED CELL DISTRIBUTION WIDTH 12.8 % (11.5-14.5); WHITE BLOOD COUNT 6.9 K/uL (4.8-10.8)
[2017-09-29 06:19] LABS: ALBUMIN 3.7 g/dL (3.5-5.0); ALT/SGPT 126 U/L (21-72); AST/SGOT 46 U/L (17-59); BLOOD UREA NITROGEN 10 mg/dl (9-20); CALCIUM 8.6 mg/dL (8.4-10.2); GFR AFRICAN-AMERICAN > 60; GFR NON-AFRICAN AMERICAN > 60
--- NOTE | 2017-09-29 08:38 | CP.PCM.PN ---
Subjective - Date & Time of Evaluation Date of Evaluation: 09/29/17 Time of Evaluation: 08:37 - Subjective Subjective: denies complaints. no f/c, n/v/d. no pain. for or after 7 days off pradaxa. bw noted case d/c w/ surgery Objective - Vital Signs/Intake and Output Vital Signs (last 24 hours): Temp Pulse Resp BP Pulse Ox 98.5 F 58 L 20 158/97 H 95 09/29/17 08:24 09/29/17 08:24 09/29/17 08:24 09/29/17 08:24 09/29/17 08:24 - Medications Medications: Current Medications Acetaminophen (Tylenol 325mg Tab) 650 mg PO Q4 PRN PRN Reason: Fever >100.4 F Amlodipine Besylate (Norvasc) 10 mg PO DAILY [facility] Last Admin: 09/28/17 09:08 Dose: 10 mg Atorvastatin Calcium (Lipitor) 10 mg PO HS [facility] Last Admin: 09/28/17 21:23 Dose: 10 mg Famotidine (Pepcid) 20 mg IVP Q12 [facility] Last Admin: 09/28/17 21:22 Dose: 20 mg Home Med (Patient's Own Medication) 1 unit PO Q12@0500,1700 [facility] Last Admin: 09/29/17 05:25 Dose: 1 unit Hydromorphone HCl (Dilaudid) 1 mg IVP Q4 PRN PRN Reason: Pain, severe (8-10) Last Admin: 09/28/17 21:33 Dose: 1 mg Piperacillin Sod/Tazobactam (Sod 3.375 gm/ Sodium Chloride) 100 mls @ 100 mls/ hr IVPB Q6H [facility] PRN Reason: Protocol Last Admin: 09/29/17 05:25 Dose: 100 mls/hr Lisinopril (Zestril) 20 mg PO DAILY [facility] Last Admin: 09/28/17 09:07 Dose: 20 mg Metformin HCl (Glucophage) 750 mg PO DAILY [facility] Last Admin: 09/28/17 09:07 Dose: 750 mg Metoprolol Tartrate (Lopressor) 100 mg PO Q12 [facility] Last Admin: 09/28/17 21:23 Dose: 100 mg Morphine Sulfate (Morphine) 4 mg IVP Q4 PRN PRN Reason: Pain, moderate (4-7) Last Admin: 09/25/17 19:06 Dose: 4 mg Multivitamins/Minerals (Therapeutic-M Tab) 1 tab PO DAILY [facility] Last Admin: 09/28/17 09:06 Dose: 1 tab Ondansetron HCl (Zofran Inj) 4 mg IVP Q6 PRN PRN Reason: Nausea/Vomiting - Labs Labs: 09/29/17 05:30 09/29/17 05:30 PT 12.1 Seconds (9.8-13.1) 09/28/17 05:45 INR 1.1 (0.9-1.2) 09/28/17 05:45 APTT 32.9 Seconds (25.6-37.1) D 09/28/17 05:45 - Constitutional Appears: Well, Non-toxic, No Acute Distress - Head Exam Head Exam: ATRAUMATIC, NORMAL INSPECTION, NORMOCEPHALIC - Eye Exam Eye Exam: EOMI, Normal appearance, PERRL Pupil Exam: NORMAL ACCOMODATION, PERRL - ENT Exam ENT Exam: Mucous Membranes Moist, Normal Exam - Neck Exam Neck Exam: Full ROM, Normal Inspection. absent: Lymphadenopathy - Respiratory Exam Respiratory Exam: Clear to Ausculation Bilateral, NORMAL BREATHING PATTERN - Cardiovascular Exam Cardiovascular Exam: REGULAR RHYTHM, RRR, +S1, +S2. absent: Murmur - GI/Abdominal Exam GI & Abdominal Exam: Soft, Normal Bowel Sounds. absent: Tenderness - Extremities Exam Extremities Exam: Full ROM, Normal Capillary Refill, Normal Inspection. absent : Joint Swelling, Pedal Edema - Back Exam Back Exam: NORMAL INSPECTION - Neurological Exam Neurological Exam: Alert, Awake, CN II-XII Intact, Normal Gait, Oriented x3 - Psychiatric Exam Psychiatric exam: Normal Affect, Normal Mood - Skin Skin Exam: Dry, Intact, Normal Color, Warm Assessment and Plan (1) Afib Status: Acute (2) DVT prophylaxis Status: Acute (3) Cholecystitis Status: Acute (4) Cholelithiasis Status: Acute - Assessment and Plan (Free Text) Assessment: (1) Afib Assessment and Plan: pradaxa, rate control, home meds will likely needs 7 days off pradaxa prior to lap ajit cardio note appriciated Status: Acute (2) DVT prophylaxis Assessment and Plan: scd nad ae hose pradaxa Status: Acute (3) Cholecystitis Assessment and Plan: zosyn pain and nausea control po as tara once cleared by surgery ? need to f/u as outpt for lap ajit r/t pradaxa likely surgery medically cleared surgery Status: Acute (4) Cholelithiasis Assessment and Plan: pain and nausea control anbx surgery ?? need for outpt f/u once pradaxa stopped will d/c w/ pts cardio the dc of pradaxa Status: Acute 5-pos bc-id, cont zosyn, ec jhon in [place]. anbx x 2 wks. refused picc. wishes for outpt [facility] w/ peripheral access daily. CM aware
[2017-09-29] MEDS: Multivitamin With Minerals Tab PO SCH (09:23)
--- NOTE | 2017-09-29 09:33 | CP.PCM.PN ---
<Betsy Watt - Last Filed: 09/29/17 09:34> Subjective - Date & Time of Evaluation Date of Evaluation: 09/29/17 Time of Evaluation: 07:00 - Subjective Subjective: GENERAL SURGERY PROGRESS NOTE FOR DR. WORLEY Patient seen and examined at bedside. He is ambulating and OOB currently. He reports some pain last night and occasional pain after he eats. The pain resolves with pain medication. He denies nausea or vomiting. Objective - Vital Signs/Intake and Output Vital Signs (last 24 hours): Temp Pulse Resp BP Pulse Ox 98.5 F 64 20 142/88 95 09/29/17 08:24 09/29/17 09:23 09/29/17 08:24 09/29/17 09:23 09/29/17 08:24 - Medications Medications: Current Medications Acetaminophen (Tylenol 325mg Tab) 650 mg PO Q4 PRN PRN Reason: Fever >100.4 F Amlodipine Besylate (Norvasc) 10 mg PO DAILY [facility] Last Admin: 09/29/17 09:22 Dose: 10 mg Atorvastatin Calcium (Lipitor) 10 mg PO HS [facility] Last Admin: 09/28/17 21:23 Dose: 10 mg Famotidine (Pepcid) 20 mg IVP Q12 [facility] Last Admin: 09/28/17 21:22 Dose: 20 mg Home Med (Patient's Own Medication) 1 unit PO Q12@0500,1700 [facility] Last Admin: 09/29/17 05:25 Dose: 1 unit Hydromorphone HCl (Dilaudid) 1 mg IVP Q4 PRN PRN Reason: Pain, severe (8-10) Last Admin: 09/28/17 21:33 Dose: 1 mg Piperacillin Sod/Tazobactam (Sod 3.375 gm/ Sodium Chloride) 100 mls @ 100 mls/ hr IVPB Q6H [facility] PRN Reason: Protocol Last Admin: 09/29/17 05:25 Dose: 100 mls/hr Lisinopril (Zestril) 20 mg PO DAILY [facility] Last Admin: 09/29/17 09:23 Dose: 20 mg Metformin HCl (Glucophage) 750 mg PO DAILY [facility] Last Admin: 09/29/17 09:20 Dose: 750 mg Metoprolol Tartrate (Lopressor) 100 mg PO Q12 [facility] Last Admin: 09/29/17 09:21 Dose: 100 mg Morphine Sulfate (Morphine) 4 mg IVP Q4 PRN PRN Reason: Pain, moderate (4-7) Last Admin: 09/25/17 19:06 Dose: 4 mg Multivitamins/Minerals (Therapeutic-M Tab) 1 tab PO DAILY [facility] Last Admin: 09/29/17 09:23 Dose: 1 tab Ondansetron HCl (Zofran Inj) 4 mg IVP Q6 PRN PRN Reason: Nausea/Vomiting - Labs Labs: 09/29/17 05:30 09/29/17 05:30 PT 12.1 Seconds (9.8-13.1) 09/28/17 05:45 INR 1.1 (0.9-1.2) 09/28/17 05:45 APTT 32.9 Seconds (25.6-37.1) D 09/28/17 05:45 - Constitutional Appears: Non-toxic, No Acute Distress - Head Exam Head Exam: ATRAUMATIC, NORMAL INSPECTION - Eye Exam Eye Exam: EOMI, Normal appearance - Respiratory Exam Respiratory Exam: NORMAL BREATHING PATTERN. absent: Respiratory Distress - Cardiovascular Exam Cardiovascular Exam: +S1, +S2. absent: Tachycardia - GI/Abdominal Exam GI & Abdominal Exam: Soft, Tenderness (mild tenderness in epigastric/RUQ ). absent: Distended, Firm, Guarding, Rigid, Rebound - Neurological Exam Neurological Exam: Alert, Awake, Oriented x3 - Psychiatric Exam Psychiatric exam: Normal Affect, Normal Mood - Skin Skin Exam: Dry, Normal Color, Warm Assessment and Plan - Assessment and Plan (Free Text) Assessment: 56yo M with cholelithiasis and E. coli bacteremia. Repeat blood cx negative @ 24 hours - Afebrile, VSS - No leukocytosis - T bili now WNL, LFTs trending down, Alk phos trending down - Lipase WNL - Continue IV antibiotics - Hold Pradaxa - Plan for OR for lap ajit - Low fat diet for now - Discussed plan with Dr. Ho Watt PGY-3 <Blair Begum - Last Filed: 09/29/17 19:35> Subjective - Date & Time of Evaluation Time of Evaluation: 19:10 - Subjective Subjective: Patient was seen and examined at the bedside. Agree with resident's note above. Objective - Vital Signs/Intake and Output Vital Signs (last 24 hours): Temp Pulse Resp BP Pulse Ox 98 F 63 20 126/81 96 09/29/17 16:05 09/29/17 16:05 09/29/17 16:05 09/29/17 16:05 09/29/17 16:05 - Medications Medications: Current Medications Acetaminophen (Tylenol 325mg Tab) 650 mg PO Q4 PRN PRN Reason: Fever >100.4 F Amlodipine Besylate (Norvasc) 10 mg PO DAILY [facility] Last Admin: 09/29/17 09:22 Dose: 10 mg Atorvastatin Calcium (Lipitor) 10 mg PO HS [facility] Last Admin: 09/28/17 21:23 Dose: 10 mg Famotidine (Pepcid) 20 mg IVP Q12 [facility] Last Admin: 09/29/17 10:38 Dose: 20 mg Home Med (Patient's Own Medication) 1 unit PO Q12@0500,1700 [facility] Last Admin: 09/29/17 17:00 Dose: 1 unit Hydromorphone HCl (Dilaudid) 1 mg IVP Q4 PRN PRN Reason: Pain, severe (8-10) Last Admin: 09/29/17 16:14 Dose: 1 mg Piperacillin Sod/Tazobactam (Sod 3.375 gm/ Sodium Chloride) 100 mls @ 100 mls/ hr IVPB Q6H [facility] PRN Reason: Protocol Last Admin: 09/29/17 17:00 Dose: 100 mls/hr Lisinopril (Zestril) 20 mg PO DAILY [facility] Last Admin: 09/29/17 09:23 Dose: 20 mg Metformin HCl (Glucophage) 750 mg PO DAILY [facility] Last Admin: 09/29/17 09:20 Dose: 750 mg Metoprolol Tartrate (Lopressor) 100 mg PO Q12 [facility] Last Admin: 09/29/17 09:21 Dose: 100 mg Morphine Sulfate (Morphine) 4 mg IVP Q4 PRN PRN Reason: Pain, moderate (4-7) Last Admin: 09/25/17 19:06 Dose: 4 mg Multivitamins/Minerals (Therapeutic-M Tab) 1 tab PO DAILY [facility] Last Admin: 09/29/17 09:23 Dose: 1 tab Ondansetron HCl (Zofran Inj) 4 mg IVP Q6 PRN PRN Reason: Nausea/Vomiting - Labs Labs: 09/29/17 05:30 09/29/17 05:30 PT 12.1 Seconds (9.8-13.1) 09/28/17 05:45 INR 1.1 (0.9-1.2) 09/28/17 05:45 APTT 32.9 Seconds (25.6-37.1) D 09/28/17 05:45
[2017-09-29 11:06] LABS: BANDS 1 % (0-2); EOSINOPHIL 4 % (0-7); LYMPHOCYTE 18 % (20-50); MONOCYTE 16 % (0-10); MYELOCYTE 2 % (0-0); NEUTROPHIL 59 % (42-75); PLATELET ESTIMATE NORMAL (NORMAL); TOTAL CELLS COUNTED 100
[2017-09-29 11:07] LABS: HYPOCHROMIC SLIGHT; OVALOCYTES SLIGHT; TOXIC GRANULATION PRESENT
--- NOTE | 2017-09-29 11:43 | CP.PCM.PN ---
Subjective - Date & Time of Evaluation Date of Evaluation: 09/29/17 Time of Evaluation: 11:30 - Subjective Subjective: no pain Objective - Vital Signs/Intake and Output Vital Signs (last 24 hours): Temp Pulse Resp BP Pulse Ox 98.5 F 64 20 142/88 95 09/29/17 08:24 09/29/17 09:23 09/29/17 08:24 09/29/17 09:23 09/29/17 08:24 - Medications Medications: Current Medications Acetaminophen (Tylenol 325mg Tab) 650 mg PO Q4 PRN PRN Reason: Fever >100.4 F Amlodipine Besylate (Norvasc) 10 mg PO DAILY [facility] Last Admin: 09/29/17 09:22 Dose: 10 mg Atorvastatin Calcium (Lipitor) 10 mg PO HS [facility] Last Admin: 09/28/17 21:23 Dose: 10 mg Famotidine (Pepcid) 20 mg IVP Q12 [facility] Last Admin: 09/29/17 10:38 Dose: 20 mg Home Med (Patient's Own Medication) 1 unit PO Q12@0500,1700 [facility] Last Admin: 09/29/17 05:25 Dose: 1 unit Hydromorphone HCl (Dilaudid) 1 mg IVP Q4 PRN PRN Reason: Pain, severe (8-10) Last Admin: 09/29/17 10:35 Dose: 1 mg Piperacillin Sod/Tazobactam (Sod 3.375 gm/ Sodium Chloride) 100 mls @ 100 mls/ hr IVPB Q6H [facility] PRN Reason: Protocol Last Admin: 09/29/17 05:25 Dose: 100 mls/hr Lisinopril (Zestril) 20 mg PO DAILY [facility] Last Admin: 09/29/17 09:23 Dose: 20 mg Metformin HCl (Glucophage) 750 mg PO DAILY [facility] Last Admin: 09/29/17 09:20 Dose: 750 mg Metoprolol Tartrate (Lopressor) 100 mg PO Q12 [facility] Last Admin: 09/29/17 09:21 Dose: 100 mg Morphine Sulfate (Morphine) 4 mg IVP Q4 PRN PRN Reason: Pain, moderate (4-7) Last Admin: 09/25/17 19:06 Dose: 4 mg Multivitamins/Minerals (Therapeutic-M Tab) 1 tab PO DAILY [facility] Last Admin: 09/29/17 09:23 Dose: 1 tab Ondansetron HCl (Zofran Inj) 4 mg IVP Q6 PRN PRN Reason: Nausea/Vomiting - Labs Labs: 09/29/17 05:30 09/29/17 05:30 PT 12.1 Seconds (9.8-13.1) 09/28/17 05:45 INR 1.1 (0.9-1.2) 09/28/17 05:45 APTT 32.9 Seconds (25.6-37.1) D 09/28/17 05:45 - Head Exam Head Exam: NORMAL INSPECTION - Neck Exam Neck Exam: Normal Inspection - Respiratory Exam Respiratory Exam: NORMAL BREATHING PATTERN - GI/Abdominal Exam GI & Abdominal Exam: Soft, Normal Bowel Sounds Assessment and Plan - Assessment and Plan (Free Text) Assessment: 56 yo male with biliary colic awaiting lap ajit surgical input appreciated
[2017-09-30] MEDS: Piperacillin/Tazobact 3.375 GM in Sodium Chloride 0.9% 100 ML IVPB SCH ×4 (00:19→17:10)
[2017-09-30] MEDS: PROPAFENONE 425 MG PO SCH ×2 (05:38→17:10)
[2017-09-30 07:38] LABS: BASO # 0.1 K/uL (0.0-0.2); BASO % 1.1 % (0.0-2.0); EOS # 0.4 K/uL (0.0-0.7); HEMOGLOBIN 12.3 g/dL (12.0-18.0); LYMPH # 1.3 K/uL (1.0-4.3); LYMPH % 20.5 % (20.0-40.0); MEAN CELL VOLUME 97.4 fl (80.0-94.0); MEAN CORPUSCULAR HEMOGLOBIN 32.7 pg (27.0-31.0); MEAN CORPUSCULAR HGB CONC 33.5 g/dL (33.0-37.0); MEAN PLATELET VOLUME 7.6 fl (7.2-11.7); MONO # 1.1 K/uL (0.0-0.8); MONO % 16.6 % (0.0-10.0); NEUT # 3.7 K/uL (1.8-7.0); NEUT % 55.8 % (50.0-75.0); RBC 3.75 Mil/uL (4.40-5.90); RED CELL DISTRIBUTION WIDTH 12.7 % (11.5-14.5); WHITE BLOOD COUNT 6.5 K/uL (4.8-10.8)
[2017-09-30 07:47] LABS: ALBUMIN 3.9 g/dL (3.5-5.0); ALT/SGPT 135 U/L (21-72); AST/SGOT 66 U/L (17-59); BLOOD UREA NITROGEN 9 mg/dl (9-20); GFR AFRICAN-AMERICAN > 60; GFR NON-AFRICAN AMERICAN > 60
--- NOTE | 2017-09-30 08:26 | CP.PCM.PN ---
Subjective - Date & Time of Evaluation Date of Evaluation: 09/30/17 Time of Evaluation: 08:24 - Subjective Subjective: denies pian. nof /c, n/v/d. for surgery tomorrow. bw noted. consults appriciated. Objective - Vital Signs/Intake and Output Vital Signs (last 24 hours): Temp Pulse Resp BP Pulse Ox 98.1 F 54 L 18 155/90 H 95 09/30/17 00:35 09/30/17 00:35 09/30/17 00:35 09/30/17 00:35 09/30/17 00:35 - Medications Medications: Current Medications Acetaminophen (Tylenol 325mg Tab) 650 mg PO Q4 PRN PRN Reason: Fever >100.4 F Amlodipine Besylate (Norvasc) 10 mg PO DAILY [facility] Last Admin: 09/29/17 09:22 Dose: 10 mg Atorvastatin Calcium (Lipitor) 10 mg PO HS [facility] Last Admin: 09/29/17 21:37 Dose: 10 mg Famotidine (Pepcid) 20 mg IVP Q12 [facility] Last Admin: 09/29/17 21:45 Dose: 20 mg Home Med (Patient's Own Medication) 1 unit PO Q12@0500,1700 [facility] Last Admin: 09/30/17 05:38 Dose: 1 unit Hydromorphone HCl (Dilaudid) 1 mg IVP Q4 PRN PRN Reason: Pain, severe (8-10) Last Admin: 09/29/17 21:44 Dose: 1 mg Piperacillin Sod/Tazobactam (Sod 3.375 gm/ Sodium Chloride) 100 mls @ 100 mls/ hr IVPB Q6H [facility] PRN Reason: Protocol Last Admin: 09/30/17 05:38 Dose: 100 mls/hr Lisinopril (Zestril) 20 mg PO DAILY [facility] Last Admin: 09/29/17 09:23 Dose: 20 mg Metformin HCl (Glucophage) 750 mg PO DAILY [facility] Last Admin: 09/29/17 09:20 Dose: 750 mg Metoprolol Tartrate (Lopressor) 100 mg PO Q12 [facility] Last Admin: 09/29/17 21:37 Dose: 100 mg Morphine Sulfate (Morphine) 4 mg IVP Q4 PRN PRN Reason: Pain, moderate (4-7) Last Admin: 09/25/17 19:06 Dose: 4 mg Multivitamins/Minerals (Therapeutic-M Tab) 1 tab PO DAILY [facility] Last Admin: 09/29/17 09:23 Dose: 1 tab Ondansetron HCl (Zofran Inj) 4 mg IVP Q6 PRN PRN Reason: Nausea/Vomiting - Labs Labs: 09/30/17 06:55 09/30/17 06:55 PT 12.1 Seconds (9.8-13.1) 09/28/17 05:45 INR 1.1 (0.9-1.2) 09/28/17 05:45 APTT 32.9 Seconds (25.6-37.1) D 09/28/17 05:45 - Constitutional Appears: Well, Non-toxic, No Acute Distress - Head Exam Head Exam: ATRAUMATIC, NORMAL INSPECTION, NORMOCEPHALIC - Eye Exam Eye Exam: EOMI, Normal appearance, PERRL Pupil Exam: NORMAL ACCOMODATION, PERRL - ENT Exam ENT Exam: Mucous Membranes Moist, Normal Exam - Neck Exam Neck Exam: Full ROM, Normal Inspection. absent: Lymphadenopathy - Respiratory Exam Respiratory Exam: Clear to Ausculation Bilateral, NORMAL BREATHING PATTERN - Cardiovascular Exam Cardiovascular Exam: Irregular Rhythm, +S1, +S2. absent: Murmur - GI/Abdominal Exam GI & Abdominal Exam: Soft, Normal Bowel Sounds. absent: Tenderness - Extremities Exam Extremities Exam: Full ROM, Normal Capillary Refill, Normal Inspection. absent : Joint Swelling, Pedal Edema - Back Exam Back Exam: NORMAL INSPECTION - Neurological Exam Neurological Exam: Alert, Awake, CN II-XII Intact, Normal Gait, Oriented x3 - Psychiatric Exam Psychiatric exam: Normal Affect, Normal Mood - Skin Skin Exam: Dry, Intact, Normal Color, Warm Assessment and Plan (1) Afib Status: Acute (2) DVT prophylaxis Status: Acute (3) Cholecystitis Status: Acute (4) Cholelithiasis Status: Acute - Assessment and Plan (Free Text) Assessment: (1) Afib Assessment and Plan: pradaxa, rate control, home meds will likely needs 7 days off pradaxa prior to lap ajit cardio note appriciated Status: Acute (2) DVT prophylaxis Assessment and Plan: scd nad ae hose pradaxa Status: Acute (3) Cholecystitis Assessment and Plan: zosyn pain and nausea control medically cleared surgery Status: Acute (4) Cholelithiasis Assessment and Plan: pain and nausea control anbx surger Status: Acute 5-pos bc-id, cont zosyn, ec jhon in [place]. anbx x 2 wks. refused picc. wishes for outpt [facility] infusion center w/ peripheral access daily. CM aware pt has been in afib w/ irregular rythum
[2017-09-30] MEDS: Multivitamin With Minerals Tab PO SCH (08:54)
--- NOTE | 2017-09-30 12:17 | CP.PCM.PN ---
Subjective - Date & Time of Evaluation Date of Evaluation: 09/30/17 Time of Evaluation: 07:00 - Subjective Subjective: no fever pain is less but still present radiating to the back off pradax for OR in AM cont IV antibiotics Objective - Vital Signs/Intake and Output Vital Signs (last 24 hours): Temp Pulse Resp BP Pulse Ox 98.4 F 68 18 165/100 H 94 L 09/30/17 08:37 09/30/17 08:52 09/30/17 08:37 09/30/17 08:52 09/30/17 08:37 - Medications Medications: Current Medications Acetaminophen (Tylenol 325mg Tab) 650 mg PO Q4 PRN PRN Reason: Fever >100.4 F Amlodipine Besylate (Norvasc) 10 mg PO DAILY [facility] Last Admin: 09/30/17 08:52 Dose: 10 mg Atorvastatin Calcium (Lipitor) 10 mg PO HS [facility] Last Admin: 09/29/17 21:37 Dose: 10 mg Famotidine (Pepcid) 20 mg IVP Q12 [facility] Last Admin: 09/30/17 08:27 Dose: 20 mg Home Med (Patient's Own Medication) 1 unit PO Q12@0500,1700 [facility] Last Admin: 09/30/17 05:38 Dose: 1 unit Hydromorphone HCl (Dilaudid) 1 mg IVP Q4 PRN PRN Reason: Pain, severe (8-10) Last Admin: 09/29/17 21:44 Dose: 1 mg Piperacillin Sod/Tazobactam (Sod 3.375 gm/ Sodium Chloride) 100 mls @ 100 mls/ hr IVPB Q6H [facility] PRN Reason: Protocol Last Admin: 09/30/17 05:38 Dose: 100 mls/hr Lisinopril (Zestril) 20 mg PO DAILY [facility] Last Admin: 09/30/17 08:52 Dose: 20 mg Metformin HCl (Glucophage) 750 mg PO DAILY [facility] Last Admin: 09/30/17 08:54 Dose: 750 mg Metoprolol Tartrate (Lopressor) 100 mg PO Q12 [facility] Last Admin: 09/30/17 08:51 Dose: 100 mg Morphine Sulfate (Morphine) 4 mg IVP Q4 PRN PRN Reason: Pain, moderate (4-7) Last Admin: 09/25/17 19:06 Dose: 4 mg Multivitamins/Minerals (Therapeutic-M Tab) 1 tab PO DAILY [facility] Last Admin: 09/30/17 08:54 Dose: 1 tab Ondansetron HCl (Zofran Inj) 4 mg IVP Q6 PRN PRN Reason: Nausea/Vomiting - Labs Labs: 09/30/17 06:55 09/30/17 06:55 PT 12.1 Seconds (9.8-13.1) 09/28/17 05:45 INR 1.1 (0.9-1.2) 09/28/17 05:45 APTT 32.9 Seconds (25.6-37.1) D 09/28/17 05:45 - Constitutional Appears: Non-toxic, Chronically Ill - Head Exam Head Exam: NORMOCEPHALIC - Eye Exam Eye Exam: PERRL - ENT Exam ENT Exam: Mucous Membranes Dry - Neck Exam Neck Exam: absent: Lymphadenopathy - Respiratory Exam Respiratory Exam: Decreased Breath Sounds - Cardiovascular Exam Cardiovascular Exam: REGULAR RHYTHM - GI/Abdominal Exam GI & Abdominal Exam: Distended, Soft, Tenderness - Rectal Exam Rectal Exam: Deferred - Exam Exam: NORMAL INSPECTION Assessment and Plan (1) Diabetes Status: Acute (2) Afib Status: Acute (3) Cholecystitis Status: Acute (4) Cholelithiasis Status: Acute (5) HTN (hypertension) Status: Acute (6) E. coli bacteremia Status: Acute - Assessment and Plan (Free Text) Assessment: for OR tomorrow cont Iv antibiotics
--- NOTE | 2017-09-30 14:36 | CP.PCM.PN ---
<Katelin Martínez - Last Filed: 09/30/17 14:34> Subjective - Date & Time of Evaluation Date of Evaluation: 09/30/17 Time of Evaluation: 10:30 - Subjective Subjective: General surgery note for Dr. Begum-Katelin Martínez, PGY-1 Pt S & E at bedside this AM. Pt reports continued ab pain at night, intermittent, RUQ. Also reports L mid back pain. Denies N & V, F & C, SOB, CP, other complaints. Is ambulating. Tolerating diet. Voiding. Moving bowels. Objective - Vital Signs/Intake and Output Vital Signs (last 24 hours): Temp Pulse Resp BP Pulse Ox 98.4 F 68 18 165/100 H 94 L 09/30/17 08:37 09/30/17 08:52 09/30/17 08:37 09/30/17 08:52 09/30/17 08:37 - Medications Medications: Current Medications Acetaminophen (Tylenol 325mg Tab) 650 mg PO Q4 PRN PRN Reason: Fever >100.4 F Amlodipine Besylate (Norvasc) 10 mg PO DAILY [facility] Last Admin: 09/30/17 08:52 Dose: 10 mg Atorvastatin Calcium (Lipitor) 10 mg PO HS [facility] Last Admin: 09/29/17 21:37 Dose: 10 mg Famotidine (Pepcid) 20 mg IVP Q12 [facility] Last Admin: 09/30/17 08:27 Dose: 20 mg Home Med (Patient's Own Medication) 1 unit PO Q12@0500,1700 [facility] Last Admin: 09/30/17 05:38 Dose: 1 unit Hydromorphone HCl (Dilaudid) 1 mg IVP Q4 PRN PRN Reason: Pain, severe (8-10) Last Admin: 09/30/17 13:34 Dose: 1 mg Piperacillin Sod/Tazobactam (Sod 3.375 gm/ Sodium Chloride) 100 mls @ 100 mls/ hr IVPB Q6H [facility] PRN Reason: Protocol Last Admin: 09/30/17 12:32 Dose: 100 mls/hr Lisinopril (Zestril) 20 mg PO DAILY [facility] Last Admin: 09/30/17 08:52 Dose: 20 mg Metformin HCl (Glucophage) 750 mg PO DAILY [facility] Last Admin: 09/30/17 08:54 Dose: 750 mg Metoprolol Tartrate (Lopressor) 100 mg PO Q12 [facility] Last Admin: 09/30/17 08:51 Dose: 100 mg Morphine Sulfate (Morphine) 4 mg IVP Q4 PRN PRN Reason: Pain, moderate (4-7) Last Admin: 09/25/17 19:06 Dose: 4 mg Multivitamins/Minerals (Therapeutic-M Tab) 1 tab PO DAILY [facility] Last Admin: 09/30/17 08:54 Dose: 1 tab Ondansetron HCl (Zofran Inj) 4 mg IVP Q6 PRN PRN Reason: Nausea/Vomiting - Labs Labs: 09/30/17 06:55 09/30/17 06:55 PT 12.1 Seconds (9.8-13.1) 09/28/17 05:45 INR 1.1 (0.9-1.2) 09/28/17 05:45 APTT 32.9 Seconds (25.6-37.1) D 09/28/17 05:45 - Constitutional Appears: Non-toxic, No Acute Distress - Head Exam Head Exam: ATRAUMATIC, NORMAL INSPECTION, NORMOCEPHALIC - Eye Exam Eye Exam: EOMI, Normal appearance - ENT Exam ENT Exam: Mucous Membranes Moist, Normal Exam - Neck Exam Neck Exam: Full ROM, Normal Inspection - Respiratory Exam Respiratory Exam: Clear to Ausculation Bilateral, NORMAL BREATHING PATTERN - Cardiovascular Exam Cardiovascular Exam: REGULAR RHYTHM, +S1, +S2 - GI/Abdominal Exam GI & Abdominal Exam: Soft, Normal Bowel Sounds. absent: Distended (obese), Firm , Guarding, Rigid, Tenderness - Extremities Exam Extremities Exam: Normal Inspection. absent: Pedal Edema - Neurological Exam Neurological Exam: Alert, Awake, CN II-XII Intact, Oriented x3 - Psychiatric Exam Psychiatric exam: Normal Affect, Normal Mood - Skin Skin Exam: Dry, Intact, Normal Color, Warm Assessment and Plan - Assessment and Plan (Free Text) Assessment: 56yo M with cholelithiasis and E. coli bacteremia. Repeat blood cx negative @ 48H Plan: Cont IV Abx Cont holding Pradaxa/anticoagulation NPO after MN Plan for OR tomorrow Consent in chart Will DW attending Tanya, PGY-1 <Blair Begum - Last Filed: 09/30/17 15:08> Subjective - Date & Time of Evaluation Time of Evaluation: 15:00 - Subjective Subjective: Patient was seen and examined at the bedside. Agree with resident's note above. Objective - Vital Signs/Intake and Output Vital Signs (last 24 hours): Temp Pulse Resp BP Pulse Ox 98.4 F 68 18 165/100 H 94 L 09/30/17 08:37 09/30/17 08:52 09/30/17 08:37 09/30/17 08:52 09/30/17 08:37 - Medications Medications: Current Medications Acetaminophen (Tylenol 325mg Tab) 650 mg PO Q4 PRN PRN Reason: Fever >100.4 F Amlodipine Besylate (Norvasc) 10 mg PO DAILY [facility] Last Admin: 09/30/17 08:52 Dose: 10 mg Atorvastatin Calcium (Lipitor) 10 mg PO HS [facility] Last Admin: 09/29/17 21:37 Dose: 10 mg Famotidine (Pepcid) 20 mg IVP Q12 [facility] Last Admin: 09/30/17 08:27 Dose: 20 mg Home Med (Patient's Own Medication) 1 unit PO Q12@0500,1700 [facility] Last Admin: 09/30/17 05:38 Dose: 1 unit Hydromorphone HCl (Dilaudid) 1 mg IVP Q4 PRN PRN Reason: Pain, severe (8-10) Last Admin: 09/30/17 13:34 Dose: 1 mg Piperacillin Sod/Tazobactam (Sod 3.375 gm/ Sodium Chloride) 100 mls @ 100 mls/ hr IVPB Q6H [facility] PRN Reason: Protocol Last Admin: 09/30/17 12:32 Dose: 100 mls/hr Lisinopril (Zestril) 20 mg PO DAILY [facility] Last Admin: 09/30/17 08:52 Dose: 20 mg Metformin HCl (Glucophage) 750 mg PO DAILY [facility] Last Admin: 09/30/17 08:54 Dose: 750 mg Metoprolol Tartrate (Lopressor) 100 mg PO Q12 [facility] Last Admin: 09/30/17 08:51 Dose: 100 mg Morphine Sulfate (Morphine) 4 mg IVP Q4 PRN PRN Reason: Pain, moderate (4-7) Last Admin: 09/25/17 19:06 Dose: 4 mg Multivitamins/Minerals (Therapeutic-M Tab) 1 tab PO DAILY [facility] Last Admin: 09/30/17 08:54 Dose: 1 tab Ondansetron HCl (Zofran Inj) 4 mg IVP Q6 PRN PRN Reason: Nausea/Vomiting - Labs Labs: 09/30/17 06:55 09/30/17 06:55 PT 12.1 Seconds (9.8-13.1) 09/28/17 05:45 INR 1.1 (0.9-1.2) 09/28/17 05:45 APTT 32.9 Seconds (25.6-37.1) D 09/28/17 05:45
--- NOTE | 2017-09-30 16:01 | CP.PCM.PN ---
Subjective - Date & Time of Evaluation Date of Evaluation: 09/30/17 Time of Evaluation: 16:00 - Subjective Subjective: no pain Objective - Vital Signs/Intake and Output Vital Signs (last 24 hours): Temp Pulse Resp BP Pulse Ox 98.4 F 68 18 165/100 H 94 L 09/30/17 08:37 09/30/17 08:52 09/30/17 08:37 09/30/17 08:52 09/30/17 08:37 - Medications Medications: Current Medications Acetaminophen (Tylenol 325mg Tab) 650 mg PO Q4 PRN PRN Reason: Fever >100.4 F Amlodipine Besylate (Norvasc) 10 mg PO DAILY [facility] Last Admin: 09/30/17 08:52 Dose: 10 mg Atorvastatin Calcium (Lipitor) 10 mg PO HS [facility] Last Admin: 09/29/17 21:37 Dose: 10 mg Famotidine (Pepcid) 20 mg IVP Q12 [facility] Last Admin: 09/30/17 08:27 Dose: 20 mg Home Med (Patient's Own Medication) 1 unit PO Q12@0500,1700 [facility] Last Admin: 09/30/17 05:38 Dose: 1 unit Hydromorphone HCl (Dilaudid) 1 mg IVP Q4 PRN PRN Reason: Pain, severe (8-10) Last Admin: 09/30/17 13:34 Dose: 1 mg Piperacillin Sod/Tazobactam (Sod 3.375 gm/ Sodium Chloride) 100 mls @ 100 mls/ hr IVPB Q6H [facility] PRN Reason: Protocol Last Admin: 09/30/17 12:32 Dose: 100 mls/hr Lisinopril (Zestril) 20 mg PO DAILY [facility] Last Admin: 09/30/17 08:52 Dose: 20 mg Metformin HCl (Glucophage) 750 mg PO DAILY [facility] Last Admin: 09/30/17 08:54 Dose: 750 mg Metoprolol Tartrate (Lopressor) 100 mg PO Q12 [facility] Last Admin: 09/30/17 08:51 Dose: 100 mg Morphine Sulfate (Morphine) 4 mg IVP Q4 PRN PRN Reason: Pain, moderate (4-7) Last Admin: 09/25/17 19:06 Dose: 4 mg Multivitamins/Minerals (Therapeutic-M Tab) 1 tab PO DAILY [facility] Last Admin: 09/30/17 08:54 Dose: 1 tab Ondansetron HCl (Zofran Inj) 4 mg IVP Q6 PRN PRN Reason: Nausea/Vomiting - Labs Labs: 09/30/17 06:55 09/30/17 06:55 PT 12.1 Seconds (9.8-13.1) 09/28/17 05:45 INR 1.1 (0.9-1.2) 09/28/17 05:45 APTT 32.9 Seconds (25.6-37.1) D 09/28/17 05:45 - Head Exam Head Exam: NORMAL INSPECTION - Respiratory Exam Respiratory Exam: NORMAL BREATHING PATTERN - Cardiovascular Exam Cardiovascular Exam: REGULAR RHYTHM - GI/Abdominal Exam GI & Abdominal Exam: Soft, Normal Bowel Sounds Assessment and Plan - Assessment and Plan (Free Text) Assessment: 56 yo male with abd pain lap ajit in am
[2017-10-01] MEDS: Piperacillin/Tazobact 3.375 GM in Sodium Chloride 0.9% 100 ML IVPB SCH ×2 (00:05→05:50)
[2017-10-01] MEDS: PROPAFENONE 425 MG PO SCH ×2 (05:50→16:40)
[2017-10-01 06:27] LABS: INR 1.1 (0.9-1.2); PARTIAL THROMBOPLASTIN TIME 30.7 Seconds (25.6-37.1); PROTHROMBIN TIME 11.7 Seconds (9.8-13.1)
[2017-10-01 06:36] LABS: BASO # 0.1 K/uL (0.0-0.2); BASO % 1.3 % (0.0-2.0); EOS # 0.4 K/uL (0.0-0.7); HEMOGLOBIN 12.1 g/dL (12.0-18.0); LYMPH # 1.3 K/uL (1.0-4.3); LYMPH % 17.7 % (20.0-40.0); MEAN CORPUSCULAR HEMOGLOBIN 32.9 pg (27.0-31.0); MEAN CORPUSCULAR HGB CONC 33.9 g/dL (33.0-37.0); MEAN PLATELET VOLUME 7.5 fl (7.2-11.7); NEUT # 4.4 K/uL (1.8-7.0); NRBC % 0.1 % (0.0-0.0); RBC 3.67 Mil/uL (4.40-5.90); RED CELL DISTRIBUTION WIDTH 12.6 % (11.5-14.5); WHITE BLOOD COUNT 7.2 K/uL (4.8-10.8)
[2017-10-01 07:05] LABS: ALB/GLOB RATIO 0.9 (1.0-2.1); ALBUMIN 3.7 g/dL (3.5-5.0); ALT/SGPT 130 U/L (21-72); AST/SGOT 63 U/L (17-59); BLOOD UREA NITROGEN 11 mg/dl (9-20); CALCIUM 8.5 mg/dL (8.4-10.2); GFR AFRICAN-AMERICAN > 60; GFR NON-AFRICAN AMERICAN > 60
--- NOTE | 2017-10-01 08:26 | CP.PCM.PN ---
Subjective - Date & Time of Evaluation Date of Evaluation: 10/01/17 Time of Evaluation: 08:24 - Subjective Subjective: no pain. distress. no f/c n/v/d. bw noted. cleared for surgery lap ajit today 1100 Objective - Vital Signs/Intake and Output Vital Signs (last 24 hours): Temp Pulse Resp BP Pulse Ox 97.8 F 58 L 18 141/90 96 10/01/17 00:40 10/01/17 00:40 10/01/17 00:40 10/01/17 00:40 10/01/17 00:40 - Medications Medications: Current Medications Acetaminophen (Tylenol 325mg Tab) 650 mg PO Q4 PRN PRN Reason: Fever >100.4 F Amlodipine Besylate (Norvasc) 10 mg PO DAILY [facility] Last Admin: 09/30/17 08:52 Dose: 10 mg Atorvastatin Calcium (Lipitor) 10 mg PO HS [facility] Last Admin: 09/30/17 21:51 Dose: 10 mg Famotidine (Pepcid) 20 mg IVP Q12 [facility] Last Admin: 09/30/17 21:51 Dose: 20 mg Home Med (Patient's Own Medication) 1 unit PO Q12@0500,1700 [facility] Last Admin: 10/01/17 05:50 Dose: 1 unit Hydromorphone HCl (Dilaudid) 1 mg IVP Q4 PRN PRN Reason: Pain, severe (8-10) Last Admin: 09/30/17 21:56 Dose: 1 mg Piperacillin Sod/Tazobactam (Sod 3.375 gm/ Sodium Chloride) 100 mls @ 100 mls/ hr IVPB Q6H [facility] PRN Reason: Protocol Last Admin: 10/01/17 05:50 Dose: 100 mls/hr Lisinopril (Zestril) 20 mg PO DAILY [facility] Last Admin: 09/30/17 08:52 Dose: 20 mg Metformin HCl (Glucophage) 750 mg PO DAILY [facility] Last Admin: 09/30/17 08:54 Dose: 750 mg Metoprolol Tartrate (Lopressor) 100 mg PO Q12 [facility] Last Admin: 09/30/17 21:51 Dose: 100 mg Morphine Sulfate (Morphine) 4 mg IVP Q4 PRN PRN Reason: Pain, moderate (4-7) Last Admin: 09/25/17 19:06 Dose: 4 mg Multivitamins/Minerals (Therapeutic-M Tab) 1 tab PO DAILY [facility] Last Admin: 09/30/17 08:54 Dose: 1 tab Ondansetron HCl (Zofran Inj) 4 mg IVP Q6 PRN PRN Reason: Nausea/Vomiting - Labs Labs: 10/01/17 05:30 10/01/17 05:30 PT 11.7 Seconds (9.8-13.1) 10/01/17 05:30 INR 1.1 (0.9-1.2) 10/01/17 05:30 APTT 30.7 Seconds (25.6-37.1) 10/01/17 05:30 - Constitutional Appears: Well, Non-toxic, No Acute Distress - Head Exam Head Exam: ATRAUMATIC, NORMAL INSPECTION, NORMOCEPHALIC - Eye Exam Eye Exam: EOMI, Normal appearance, PERRL Pupil Exam: NORMAL ACCOMODATION, PERRL - ENT Exam ENT Exam: Mucous Membranes Moist, Normal Exam - Neck Exam Neck Exam: Full ROM, Normal Inspection. absent: Lymphadenopathy - Respiratory Exam Respiratory Exam: Clear to Ausculation Bilateral, NORMAL BREATHING PATTERN - Cardiovascular Exam Cardiovascular Exam: Irregular Rhythm, +S1, +S2. absent: Murmur - GI/Abdominal Exam GI & Abdominal Exam: Soft, Normal Bowel Sounds. absent: Tenderness - Extremities Exam Extremities Exam: Full ROM, Normal Capillary Refill, Normal Inspection. absent : Joint Swelling, Pedal Edema - Back Exam Back Exam: NORMAL INSPECTION - Neurological Exam Neurological Exam: Alert, Awake, CN II-XII Intact, Normal Gait, Oriented x3 - Psychiatric Exam Psychiatric exam: Normal Affect, Normal Mood - Skin Skin Exam: Dry, Intact, Normal Color, Warm Assessment and Plan (1) Afib Status: Acute (2) DVT prophylaxis Status: Acute (3) Cholecystitis Status: Acute (4) Cholelithiasis Status: Acute - Assessment and Plan (Free Text) Assessment: (1) Afib Assessment and Plan: pradaxa, rate control, home meds will likely needs 7 days off pradaxa prior to lap ajit cardio note appriciated Status: Acute (2) DVT prophylaxis Assessment and Plan: scd nad ae hose pradaxa Status: Acute (3) Cholecystitis Assessment and Plan: zosyn pain and nausea control medically cleared surgery today Status: Acute (4) Cholelithiasis Assessment and Plan: pain and nausea control anbx surgery Status: Acute 5-pos bc-id, cont zosyn, ec jhon in [place]. anbx x 2 wks. refused picc. wishes for outpt [facility] infusion center w/ peripheral access daily. CM aware
[2017-10-01] MEDS: Multivitamin With Minerals Tab PO SCH (08:58)
--- NOTE | 2017-10-01 09:40 | CP.PCM.PN ---
Subjective - Date & Time of Evaluation Date of Evaluation: 10/01/17 Time of Evaluation: 09:40 - Subjective Subjective: no pain Objective - Vital Signs/Intake and Output Vital Signs (last 24 hours): Temp Pulse Resp BP Pulse Ox 98.1 F 62 20 134/75 96 10/01/17 08:34 10/01/17 08:57 10/01/17 08:34 10/01/17 08:57 10/01/17 08:34 - Medications Medications: Current Medications Acetaminophen (Tylenol 325mg Tab) 650 mg PO Q4 PRN PRN Reason: Fever >100.4 F Amlodipine Besylate (Norvasc) 10 mg PO DAILY [facility] Last Admin: 10/01/17 08:57 Dose: 10 mg Atorvastatin Calcium (Lipitor) 10 mg PO HS [facility] Last Admin: 09/30/17 21:51 Dose: 10 mg Famotidine (Pepcid) 20 mg IVP Q12 [facility] Last Admin: 10/01/17 08:57 Dose: 20 mg Home Med (Patient's Own Medication) 1 unit PO Q12@0500,1700 [facility] Last Admin: 10/01/17 05:50 Dose: 1 unit Hydromorphone HCl (Dilaudid) 1 mg IVP Q4 PRN PRN Reason: Pain, severe (8-10) Last Admin: 09/30/17 21:56 Dose: 1 mg Piperacillin Sod/Tazobactam (Sod 3.375 gm/ Sodium Chloride) 100 mls @ 100 mls/ hr IVPB Q6H [facility] PRN Reason: Protocol Last Admin: 10/01/17 05:50 Dose: 100 mls/hr Lisinopril (Zestril) 20 mg PO DAILY [facility] Last Admin: 10/01/17 08:56 Dose: 20 mg Metformin HCl (Glucophage) 750 mg PO DAILY [facility] Last Admin: 10/01/17 08:55 Dose: Not Given Metoprolol Tartrate (Lopressor) 100 mg PO Q12 [facility] Last Admin: 10/01/17 08:55 Dose: 100 mg Morphine Sulfate (Morphine) 4 mg IVP Q4 PRN PRN Reason: Pain, moderate (4-7) Last Admin: 09/25/17 19:06 Dose: 4 mg Multivitamins/Minerals (Therapeutic-M Tab) 1 tab PO DAILY [facility] Last Admin: 10/01/17 08:58 Dose: Not Given Ondansetron HCl (Zofran Inj) 4 mg IVP Q6 PRN PRN Reason: Nausea/Vomiting - Labs Labs: 10/01/17 05:30 10/01/17 05:30 PT 11.7 Seconds (9.8-13.1) 10/01/17 05:30 INR 1.1 (0.9-1.2) 10/01/17 05:30 APTT 30.7 Seconds (25.6-37.1) 10/01/17 05:30 - Head Exam Head Exam: NORMAL INSPECTION - Respiratory Exam Respiratory Exam: NORMAL BREATHING PATTERN - Cardiovascular Exam Cardiovascular Exam: REGULAR RHYTHM - GI/Abdominal Exam GI & Abdominal Exam: Soft, Normal Bowel Sounds Assessment and Plan - Assessment and Plan (Free Text) Assessment: 56 yo male with biliary colic lap ajit today
[2017-10-01] MEDS ORDERED: Bupivacaine 0.5% Inj(30mL) ONE (10:37)
[2017-10-01] MEDS ORDERED: ceFAZolin IV 1 gm in Dextrose 1 GM/50 ML BAG IVPB ONE (10:37)
[2017-10-01] MEDS ORDERED: Iohexol 300 100 ML IJ ONE (10:37)
[2017-10-01] MEDS ORDERED: Rocuronium 10 mg/ml (5 ml) ONE (11:37)
[2017-10-01] MEDS ORDERED: Succinylcholine 200 mg/10 ml Inj IV ONE (11:37)
[2017-10-01] MEDS ORDERED: Neostigmine Methylsulfate 3mg/3ml Syringe IV ONE (11:37)
[2017-10-01] MEDS ORDERED: Midazolam 2 MG/2 ML VIAL ONE (11:37)
[2017-10-01] MEDS ORDERED: Propofol 10 mg/ml Inj (20 ML) ONE (11:37)
[2017-10-01] MEDS ORDERED: Lactated Ringer's 1,000 ML IV ONE ×2 (11:45→12:45)
[2017-10-01] MEDS ORDERED: Dexamethasone 4 mg/1 ml IVP ONE (12:20)
--- NOTE | 2017-10-01 12:55 | PQF GENQUE ---
This form is a permanent part of the medical record 10/01/17 Joaquin Tay APN, Please clarify the type of atrial fibrillation if known. Documentation of a history of Atrial Fibrillation. EKG: SInus tachycardia on admission. Medication includes Metoprolol and Pradaxa ( on hold) . Clarification of your documentation is requested to better reflect the severity of illness and intensity of treatment of your patient. Indicators present [] Specify: [] [] Specify: [] [] Specify: [] [] Specify: [] Location in the medical record that reflects the above clinical findings: [] Treatment Provided: [] PHYSICIAN'S RESPONSE Type of atrial fibrillation: [x] Chronic [] Paroxysmal [] Permanent [] Persistent [] Other (please specify type) [] Clinically unable to determine [] Unknown Based on your medical judgment of the clinical indicators outlined above please clarify the following: [x] Practitioner response [] If unable to determine, please check the box, sign and date. Present On Admission (POA) Indicator: [x] Present at the time of admission [] Not present at the time of admission [] Clinically Undetermined In responding to this query, please exercise your independent professional judgment. The fact that a question is asked does not imply that any particular answer is desired or expected. Thank you for your clarification on this documentation. If you have any questions please call:ext [phone] * Thank you, Angela Choi RN [facility]
[2017-10-01] MEDS: HYDROmorphone 0.5 mg/0.5 ml ISec ONE ×3 (13:15→14:03)
[2017-10-01] MEDS ORDERED: HYDROmorphone 0.5 mg/0.5 ml ISec IVP PRN (13:15)
--- NOTE | 2017-10-01 13:29 | PCM.SURG1 ---
Surgeon's Initial Post Op Note - Surgeon's Notes Surgeon: Dr. Teague Paraprofessional Aide Teacher: Dr. Watt PGY-3 Type of Anesthesia: General Endo, Local (20cc) Pre-Operative Diagnosis: Cholelithiasis Operative Findings: no stones felt in specimen Post-Operative Diagnosis: same Operation Performed: Laparoscopic cholecystectomy with intraoperative cholangiogram Specimen/Specimens Removed: gallbladder Estimated Blood Loss: EBL {In ML}: 10 Blood Products Given: N/A Drains Used: No Drains Post-Op Condition: Good Date of Surgery/Procedure: 10/01/17 Time of Surgery/Procedure: 13:00
[2017-10-01] MEDS ORDERED: HYDROmorphone 0.5 mg/0.5 ml ISec ONE ×2 (13:31→13:43)
[2017-10-01] MEDS ORDERED: Lactated Ringer's 1,000 ML IV SCH (13:45)
[2017-10-01] MEDS: cefTRIAXone IV 1 gm in Dextros 50 ML IVPB SCH (16:40)
--- NOTE | 2017-10-01 18:38 | CP.PCM.PN ---
Subjective - Date & Time of Evaluation Date of Evaluation: 10/01/17 Time of Evaluation: 07:00 - Subjective Subjective: discussed on rounds iv rx to continue Objective - Vital Signs/Intake and Output Vital Signs (last 24 hours): Temp Pulse Resp BP Pulse Ox 97.7 F 73 20 161/92 H 95 10/01/17 17:32 10/01/17 17:32 10/01/17 17:32 10/01/17 17:32 10/01/17 17:32 Intake and Output: 10/01/17 10/01/17 06:59 18:59 Intake Total 1520 Balance 1520 - Medications Medications: Current Medications Acetaminophen (Tylenol 325mg Tab) 650 mg PO Q4 PRN PRN Reason: Fever >100.4 F Amlodipine Besylate (Norvasc) 10 mg PO DAILY [facility] Last Admin: 10/01/17 08:57 Dose: 10 mg Atorvastatin Calcium (Lipitor) 10 mg PO HS [facility] Last Admin: 09/30/17 21:51 Dose: 10 mg Famotidine (Pepcid) 20 mg IVP Q12 [facility] Last Admin: 10/01/17 08:57 Dose: 20 mg Home Med (Patient's Own Medication) 1 unit PO Q12@0500,1700 [facility] Last Admin: 10/01/17 16:40 Dose: 1 unit Hydromorphone HCl (Dilaudid) 1 mg IVP Q4 PRN PRN Reason: Pain, severe (8-10) Last Admin: 10/01/17 16:50 Dose: 1 mg Lactated Ringer's (Lactated Ringer's) 1,000 mls @ 100 mls/hr IV .Q10H [facility] Ceftriaxone Sodium (Rocephin Iv 1 Gm Duplex) 50 mls @ 50 mls/hr IVPB DAILY [facility] PRN Reason: Protocol Last Admin: 10/01/17 16:40 Dose: 50 mls/hr Lisinopril (Zestril) 20 mg PO DAILY [facility] Last Admin: 10/01/17 08:56 Dose: 20 mg Metformin HCl (Glucophage) 750 mg PO DAILY [facility] Last Admin: 10/01/17 08:55 Dose: Not Given Metoprolol Tartrate (Lopressor) 100 mg PO Q12 [facility] Last Admin: 10/01/17 08:55 Dose: 100 mg Morphine Sulfate (Morphine) 4 mg IVP Q4 PRN PRN Reason: Pain, moderate (4-7) Last Admin: 09/25/17 19:06 Dose: 4 mg Multivitamins/Minerals (Therapeutic-M Tab) 1 tab PO DAILY [facility] Last Admin: 10/01/17 08:58 Dose: Not Given Ondansetron HCl (Zofran Inj) 4 mg IVP Q6 PRN PRN Reason: Nausea/Vomiting - Labs Labs: 10/01/17 05:30 10/01/17 05:30 PT 11.7 Seconds (9.8-13.1) 10/01/17 05:30 INR 1.1 (0.9-1.2) 10/01/17 05:30 APTT 30.7 Seconds (25.6-37.1) 10/01/17 05:30 Assessment and Plan (1) Diabetes Status: Acute (2) Afib Status: Acute (3) Cholecystitis Status: Acute (4) Cholelithiasis Status: Acute (5) HTN (hypertension) Status: Acute (6) E. coli bacteremia Status: Acute
[2017-10-02] MEDS: PROPAFENONE 425 MG PO SCH (05:39)
[2017-10-02 07:43] LABS: BASO % 0.2 % (0.0-2.0); EOS % 0.1 % (0.0-4.0); HEMOGLOBIN 12.7 g/dL (12.0-18.0); LYMPH # 1.5 K/uL (1.0-4.3); LYMPH % 8.9 % (20.0-40.0); MEAN CELL VOLUME 96.4 fl (80.0-94.0); MEAN CORPUSCULAR HEMOGLOBIN 32.4 pg (27.0-31.0); MEAN CORPUSCULAR HGB CONC 33.6 g/dL (33.0-37.0); MEAN PLATELET VOLUME 7.5 fl (7.2-11.7); MONO # 1.6 K/uL (0.0-0.8); MONO % 9.3 % (0.0-10.0); NEUT # 13.7 K/uL (1.8-7.0); NEUT % 81.5 % (50.0-75.0); PLATELET COUNT 475 K/uL (130-400); RBC 3.93 Mil/uL (4.40-5.90); RED CELL DISTRIBUTION WIDTH 12.8 % (11.5-14.5); WHITE BLOOD COUNT 16.9 K/uL (4.8-10.8)
[2017-10-02 08:14] LABS: ALB/GLOB RATIO 1.1 (1.0-2.1); ALBUMIN 4.4 g/dL (3.5-5.0); ALT/SGPT 180 U/L (21-72); AST/SGOT 94 U/L (17-59); BLOOD UREA NITROGEN 11 mg/dl (9-20); CALCIUM 9.6 mg/dL (8.4-10.2); GFR AFRICAN-AMERICAN > 60; GFR NON-AFRICAN AMERICAN > 60
[2017-10-02 08:35] VITALS: BP 115/93; PULSE 68; RESP 20; TEMP 98.2; O2SAT 94
[2017-10-02] MEDS: Multivitamin With Minerals Tab PO SCH (08:40)
[2017-10-02] MEDS: cefTRIAXone IV 1 gm in Dextros 50 ML IVPB SCH (08:45)
--- NOTE | 2017-10-02 09:12 | CP.PCM.PN ---
<Betsy Watt - Last Filed: 10/02/17 10:20> Subjective - Date & Time of Evaluation Date of Evaluation: 10/02/17 Time of Evaluation: 07:00 - Subjective Subjective: GENERAL SURGERY PROGRESS NOTE FOR DR. BEGUM Patient seen and examined at bedside. He is ambulating and OOB currently. He reports some pain in the umbilical area and his right back/shoulder. He tolerated his diet. He denies nausea or vomiting. He is passing flatus and voiding. Objective - Vital Signs/Intake and Output Vital Signs (last 24 hours): Temp Pulse Resp BP Pulse Ox 98.2 F 68 20 115/93 H 94 L 10/02/17 08:34 10/02/17 08:34 10/02/17 08:34 10/02/17 08:40 10/02/17 08:34 - Medications Medications: Current Medications Acetaminophen (Tylenol 325mg Tab) 650 mg PO Q4 PRN PRN Reason: Fever >100.4 F Amlodipine Besylate (Norvasc) 10 mg PO DAILY [facility] Last Admin: 10/02/17 08:40 Dose: 10 mg Atorvastatin Calcium (Lipitor) 10 mg PO HS [facility] Last Admin: 10/01/17 21:17 Dose: 10 mg Famotidine (Pepcid) 20 mg IVP Q12 [facility] Last Admin: 10/02/17 08:45 Dose: 20 mg Home Med (Patient's Own Medication) 1 unit PO Q12@0500,1700 [facility] Last Admin: 10/02/17 05:39 Dose: 1 unit Hydromorphone HCl (Dilaudid) 1 mg IVP Q4 PRN PRN Reason: Pain, severe (8-10) Last Admin: 10/02/17 00:00 Dose: 1 mg Lactated Ringer's (Lactated Ringer's) 1,000 mls @ 100 mls/hr IV .Q10H [facility] Ceftriaxone Sodium 1 gm/ (Sodium Chloride) 100 mls @ 100 mls/hr IVPB DAILY [facility] PRN Reason: Protocol Lisinopril (Zestril) 20 mg PO DAILY [facility] Last Admin: 10/02/17 08:40 Dose: 20 mg Metformin HCl (Glucophage) 750 mg PO DAILY [facility] Last Admin: 10/02/17 08:40 Dose: 750 mg Metoprolol Tartrate (Lopressor) 100 mg PO Q12 [facility] Last Admin: 10/02/17 08:40 Dose: 100 mg Morphine Sulfate (Morphine) 4 mg IVP Q4 PRN PRN Reason: Pain, moderate (4-7) Last Admin: 10/02/17 06:57 Dose: 4 mg Multivitamins/Minerals (Therapeutic-M Tab) 1 tab PO DAILY [facility] Last Admin: 10/02/17 08:40 Dose: 1 tab Ondansetron HCl (Zofran Inj) 4 mg IVP Q6 PRN PRN Reason: Nausea/Vomiting - Labs Labs: 10/02/17 06:30 10/02/17 06:30 PT 11.7 Seconds (9.8-13.1) 10/01/17 05:30 INR 1.1 (0.9-1.2) 10/01/17 05:30 APTT 30.7 Seconds (25.6-37.1) 10/01/17 05:30 - Constitutional Appears: Well, Non-toxic, No Acute Distress - Head Exam Head Exam: ATRAUMATIC, NORMAL INSPECTION - Eye Exam Eye Exam: EOMI, Normal appearance - Respiratory Exam Respiratory Exam: NORMAL BREATHING PATTERN. absent: Respiratory Distress - Cardiovascular Exam Cardiovascular Exam: +S1, +S2. absent: Tachycardia - GI/Abdominal Exam GI & Abdominal Exam: Soft, Tenderness (mild tenderness around laparoscopic incision sites, normal in post operative period). absent: Distended, Firm, Guarding, Rigid, Rebound Additional comments: Dermabond in place over 4 laparoscopic incision sites - Neurological Exam Neurological Exam: Alert, Awake, Oriented x3 - Psychiatric Exam Psychiatric exam: Normal Affect, Normal Mood - Skin Skin Exam: Dry, Normal Color, Warm Assessment and Plan - Assessment and Plan (Free Text) Assessment: 56yo M s/p Laparoscopic cholecystectomy with intraoperative cholangiogram POD#1 - Afebrile, VSS - WBC 16.9 today (reactive from surgery) - T bili WNL, LFTs increased slightly (normal after ajit) - Tolerating bland diet - Clear for discharge from surgical standpoint when clear by ID - Avoid heavy lifting for 4 weeks - May shower tomorrow but do not take a bath for 2 weeks - Follow up with Dr. Teague in his office, call to make appointment - Discussed plan with Dr. Kel Watt PGY-3 <Blair Begum - Last Filed: 10/02/17 10:23> Subjective - Date & Time of Evaluation Time of Evaluation: 10:10 - Subjective Subjective: Patient was seen and examined at the bedside. Agree with resident's note above. Objective - Vital Signs/Intake and Output Vital Signs (last 24 hours): Temp Pulse Resp BP Pulse Ox 98.2 F 68 20 115/93 H 94 L 10/02/17 08:34 10/02/17 08:34 10/02/17 08:34 10/02/17 08:40 10/02/17 08:34 - Medications Medications: Current Medications Acetaminophen (Tylenol 325mg Tab) 650 mg PO Q4 PRN PRN Reason: Fever >100.4 F Amlodipine Besylate (Norvasc) 10 mg PO DAILY [facility] Last Admin: 10/02/17 08:40 Dose: 10 mg Atorvastatin Calcium (Lipitor) 10 mg PO HS [facility] Last Admin: 10/01/17 21:17 Dose: 10 mg Famotidine (Pepcid) 20 mg IVP Q12 [facility] Last Admin: 10/02/17 08:45 Dose: 20 mg Home Med (Patient's Own Medication) 1 unit PO Q12@0500,1700 [facility] Last Admin: 10/02/17 05:39 Dose: 1 unit Hydromorphone HCl (Dilaudid) 1 mg IVP Q4 PRN PRN Reason: Pain, severe (8-10) Last Admin: 10/02/17 00:00 Dose: 1 mg Lactated Ringer's (Lactated Ringer's) 1,000 mls @ 100 mls/hr IV .Q10H [facility] Ceftriaxone Sodium 1 gm/ (Sodium Chloride) 100 mls @ 100 mls/hr IVPB DAILY [facility] PRN Reason: Protocol Lisinopril (Zestril) 20 mg PO DAILY [facility] Last Admin: 10/02/17 08:40 Dose: 20 mg Metformin HCl (Glucophage) 750 mg PO DAILY [facility] Last Admin: 10/02/17 08:40 Dose: 750 mg Metoprolol Tartrate (Lopressor) 100 mg PO Q12 [facility] Last Admin: 10/02/17 08:40 Dose: 100 mg Morphine Sulfate (Morphine) 4 mg IVP Q4 PRN PRN Reason: Pain, moderate (4-7) Last Admin: 10/02/17 06:57 Dose: 4 mg Multivitamins/Minerals (Therapeutic-M Tab) 1 tab PO DAILY [facility] Last Admin: 10/02/17 08:40 Dose: 1 tab Ondansetron HCl (Zofran Inj) 4 mg IVP Q6 PRN PRN Reason: Nausea/Vomiting - Labs Labs: 10/02/17 06:30 10/02/17 06:30 PT 11.7 Seconds (9.8-13.1) 10/01/17 05:30 INR 1.1 (0.9-1.2) 10/01/17 05:30 APTT 30.7 Seconds (25.6-37.1) 10/01/17 05:30
--- NOTE | 2017-10-02 09:28 | CP.PCM.DIS ---
Provider - Provider Date of Admission: 09/24/17 23:07 Attending physician: Geovanna Berrios MD Time Spent in preparation of Discharge (in minutes): 15 Diagnosis - Discharge Diagnosis (1) Afib Status: Acute (2) DVT prophylaxis Status: Acute (3) Cholecystitis Status: Acute (4) Cholelithiasis Status: Acute Hospital Course - Lab Results Lab Results: Micro Results 09/28/17 05:45 Blood-Venous Blood Culture - Preliminary NO GROWTH AFTER 4 DAYS 09/24/17 20:50 Blood-Venous Blood Culture - Final NO GROWTH AFTER 5 DAYS 09/24/17 20:50 Blood-Venous Gram Stain - Final TEST NOT PERFORMED 09/24/17 21:10 Blood-Venous Blood Culture - Final Escherichia Coli 09/24/17 21:10 Blood-Venous Gram Stain - Final Most Recent Lab Values WBC 16.9 K/uL (4.8-10.8) H D 10/02/17 06:30 RBC 3.93 Mil/uL (4.40-5.90) L 10/02/17 06:30 Hgb 12.7 g/dL (12.0-18.0) 10/02/17 06:30 Hct 37.9 % (35.0-51.0) 10/02/17 06:30 MCV 96.4 fl (80.0-94.0) H 10/02/17 06:30 MCH 32.4 pg (27.0-31.0) H 10/02/17 06:30 MCHC 33.6 g/dL (33.0-37.0) 10/02/17 06:30 RDW 12.8 % (11.5-14.5) 10/02/17 06:30 Plt Count 475 K/uL (130-400) H D 10/02/17 06:30 MPV 7.5 fl (7.2-11.7) 10/02/17 06:30 Neut % (Auto) 81.5 % (50.0-75.0) H 10/02/17 06:30 Lymph % (Auto) 8.9 % (20.0-40.0) L 10/02/17 06:30 [place] % (Auto) 9.3 % (0.0-10.0) 10/02/17 06:30 Eos % (Auto) 0.1 % (0.0-4.0) 10/02/17 06:30 Baso % (Auto) 0.2 % (0.0-2.0) 10/02/17 06:30 Neut # 13.7 K/uL (1.8-7.0) H 10/02/17 06:30 Lymph # 1.5 K/uL (1.0-4.3) 10/02/17 06:30 [place] # 1.6 K/uL (0.0-0.8) H 10/02/17 06:30 Eos # 0.0 K/uL (0.0-0.7) 10/02/17 06:30 Baso # 0.0 K/uL (0.0-0.2) 10/02/17 06:30 Neutrophils % (Manual) 59 % (42-75) 09/29/17 05:30 Band Neutrophils % 1 % (0-2) 09/29/17 05:30 Lymphocytes % (Manual) 18 % (20-50) L 09/29/17 05:30 Monocytes % (Manual) 16 % (0-10) H 09/29/17 05:30 Eosinophils % (Manual) 4 % (0-7) 09/29/17 05:30 Basophils % (Manual) 1 % (0-2) 09/24/17 20:50 Myelocytes % 2 % (0-0) H 09/29/17 05:30 Toxic Granulation Present 09/29/17 05:30 Platelet Estimate Normal (NORMAL) 09/29/17 05:30 Large Platelets Present 09/24/17 20:50 Hypochromasia (manual) Slight 09/29/17 05:30 Macrocytosis (manual) Slight 09/24/17 20:50 Ovalocytes Slight 09/29/17 05:30 PT 11.7 Seconds (9.8-13.1) 10/01/17 05:30 INR 1.1 (0.9-1.2) 10/01/17 05:30 APTT 30.7 Seconds (25.6-37.1) 10/01/17 05:30 Sodium 137 mmol/l (132-148) 10/02/17 06:30 Potassium 4.1 MMOL/L (3.6-5.0) 10/02/17 06:30 Chloride 98 mmol/L (98-107) 10/02/17 06:30 Carbon Dioxide 28 mmol/L (22-30) 10/02/17 06:30 Anion Gap 15 (10-20) 10/02/17 06:30 BUN 11 mg/dl (9-20) 10/02/17 06:30 Creatinine 0.9 mg/dl (0.8-1.5) 10/02/17 06:30 Est GFR ( Amer) > 60 10/02/17 06:30 Est GFR (Non-Af Amer) > 60 10/02/17 06:30 POC Glucose (mg/dL) 144 mg/dL (65-110) H 10/02/17 06:11 Random Glucose 134 mg/dL (75-110) H 10/02/17 06:30 Hemoglobin A1c 5.5 % (4.2-6.5) 09/26/17 05:25 Lactic Acid 1.2 MMOL/L (0.7-2.1) 09/25/17 06:15 Calcium 9.6 mg/dL (8.4-10.2) 10/02/17 06:30 Total Bilirubin 1.0 mg/dl (0.2-1.3) 10/02/17 06:30 AST 94 U/L (17-59) H D 10/02/17 06:30 ALT 180 U/L (21-72) H D 10/02/17 06:30 Alkaline Phosphatase 107 U/L (38-126) 10/02/17 06:30 Total Protein 8.3 G/DL (6.3-8.2) H 10/02/17 06:30 Albumin 4.4 g/dL (3.5-5.0) 10/02/17 06:30 Globulin 4.0 gm/dL (2.2-3.9) H 10/02/17 06:30 Albumin/Globulin Ratio 1.1 (1.0-2.1) 10/02/17 06:30 Lipase 123 U/L (23-300) 09/24/17 20:50 Urine Color [place] (YELLOW) 09/24/17 20:50 Urine Clarity Slighty-cloudy (Clear) 09/24/17 20:50 Urine pH 5.0 (5.0-8.0) 09/24/17 20:50 Ur Specific [place] 1.025 (1.003-1.030) 09/24/17 20:50 Urine Protein >=500 mg/dL (NEGATIVE) 09/24/17 20:50 Urine Glucose (UA) Neg mg/dL (Normal) 09/24/17 20:50 Urine Ketones Trace mg/dL (NEGATIVE) 09/24/17 20:50 Urine Blood Small (NEGATIVE) 09/24/17 20:50 Urine Nitrate Negative (NEGATIVE) 09/24/17 20:50 Urine Bilirubin Moderate (NEGATIVE) 09/24/17 20:50 Urine Urobilinogen 4.0 mg/dL (0.2-1.0) 09/24/17 20:50 Ur Leukocyte Esterase Neg Jaleel/uL (Negative) 09/24/17 20:50 Urine RBC (Auto) 9 /hpf (0-3) H 09/24/17 20:50 Urine Microscopic WBC 7 /hpf (0-5) H 09/24/17 20:50 Ur Squamous Epith Cells 7 /hpf (0-5) H 09/24/17 20:50 Urine Bacteria Rare (<OCC) 09/24/17 20:50 Hyaline Casts 6-10 /hpf (0-2) H 09/24/17 20:50 Hep Bs Antigen Negative (NEGATIVE) 09/28/17 05:45 Hep Bs Antibody Negative (NEGATIVE) 09/28/17 05:45 Hep B Core IgM Ab Negative (NEGATIVE) 09/28/17 05:45 Hepatitis C Antibody Negative (NEGATIVE) 09/28/17 05:45 HIV 1&2 Antibody Screen Negative (NEGATIVE) 09/28/17 05:45 Influenza Typ A,B (EIA) Negative for flu a/b (NEGATIVE) 09/24/17 20:50 Discharge Exam - Head Exam Head Exam: ATRAUMATIC, NORMAL INSPECTION - Eye Exam Eye Exam: EOMI, Normal appearance, PERRL Pupil Exam: NORMAL ACCOMODATION, PERRL - Respiratory Exam Respiratory Exam: Clear to PA & Lateral, NORMAL BREATHING PATTERN, UNREMARKABLE - Cardiovascular Exam Cardiovascular Exam: REGULAR RHYTHM, RRR, +S1, +S2 - GI/Abdominal Exam GI & Abdominal Exam: Normal Bowel Sounds, Soft, Unremarkable - Extremities Exam Extremities exam: full ROM, normal capillary refill, normal inspection, pedal pulses present - Neurological Exam Neurological exam: Alert, CN II-XII Intact, Normal Gait, Oriented x3, Reflexes Normal - Psychiatric Exam Psychiatric exam: Normal Affect, Normal Mood - Skin Skin Exam: Dry, Intact, Normal Color, Warm Discharge Plan - Discharge Medications Prescriptions: Cefuroxime Axetil [Cefuroxime] 500 mg PO BID #14 tablet oxyCODONE/Acetaminophen [Percocet 5/325 mg Tab] 1 tab PO Q4 PRN #10 tab PRN Reason: Pain, Moderate (4-7) - Follow Up Plan Condition: FAIR Disposition: HOME/ ROUTINE Instructions: Gallstones (DC), Low Fat Diet (DC), Laparoscopic Cholecystectomy (DC) Additional Instructions: follow up at [facility] in [address] Teague in 1 week Start Cefuroxime after completing 7 days of IV Rocephin final dx-bacteremia due to cholecystitis. s/p cholecystectoy. site c/di no compalits. start pradaxa tongiht. Referrals: Luis Teague MD [Staff Provider] - Zacarias Rome MD, PhD [Staff Provider] - Von Deleon MD [Staff Provider] -
[2017-10-02 11:29] LABS: BANDS 1 % (0-2); LYMPHOCYTE 10 % (20-50); MONOCYTE 10 % (0-10); MYELOCYTE 1 % (0-0); NEUTROPHIL 77 % (42-75); PLATELET ESTIMATE NORMAL (NORMAL); REACTIVE LYMPHOCYTES 1 % (0-0); TOTAL CELLS COUNTED 100
[2017-10-02 11:30] LABS: ANISOCYTOSIS SLIGHT; OVALOCYTES SLIGHT
[2017-10-02 11:31] LABS: TOXIC GRANULATION PRESENT
--- NOTE | 2017-10-02 15:03 | RAD ---
PROCEDURE: Intraoperative fluoroscopy HISTORY: CHOLANGIOGRAM COMPARISON: Not available TECHNIQUE: Intraoperative fluoroscopy was provided for cholangiography. Total time of fluoroscopy was less than 1 hour. FINDINGS: Multiple fluoroscopic spot films are submitted including video of the procedure. These are on file for review. IMPRESSION: Fluoroscopy provided.
[2017-10-05 10:13] LABS: BASO # 0.1 K/uL (0.0-0.2); BASO % 1.1 % (0.0-2.0); EOS # 0.5 K/uL (0.0-0.7); EOS % 5.8 % (0.0-4.0); HEMOGLOBIN 12.5 g/dL (12.0-18.0); LYMPH # 1.5 K/uL (1.0-4.3); LYMPH % 16.3 % (20.0-40.0); MEAN CELL VOLUME 96.1 fl (80.0-94.0); MEAN CORPUSCULAR HGB CONC 34.4 g/dL (33.0-37.0); MEAN PLATELET VOLUME 7.4 fl (7.2-11.7); MONO # 0.8 K/uL (0.0-0.8); MONO % 9.4 % (0.0-10.0); NEUT # 6.1 K/uL (1.8-7.0); NEUT % 67.4 % (50.0-75.0); NRBC % 0.1 % (0.0-0.0); RBC 3.8 Mil/uL (4.40-5.90); RED CELL DISTRIBUTION WIDTH 12.6 % (11.5-14.5)
[2017-10-05 10:56] LABS: ALB/GLOB RATIO 1.1 (1.0-2.1); ALBUMIN 4.3 g/dL (3.5-5.0); ALT/SGPT 126 U/L (21-72); AST/SGOT 57 U/L (17-59); BLOOD UREA NITROGEN 19 mg/dl (9-20); CALCIUM 9.8 mg/dL (8.4-10.2); GFR AFRICAN-AMERICAN > 60; GFR NON-AFRICAN AMERICAN > 60
--- NOTE | 2017-10-24 00:11 | OP ---
PROCEDURE DATE: 10/01/2017 PREOPERATIVE DIAGNOSIS: Acute cholecystitis. POSTOPERATIVE DIAGNOSIS: Acute cholecystitis. PROCEDURE: Laparoscopy and laparoscopic cholecystectomy. SURGEON: Luis Teague MD ANESTHESIA: General endotracheal. OPERATIVE FINDINGS: Acute cholecystitis. PREPARATION AND PROCEDURE: The patient was brought to the Operating Room and after successful induction of general endotracheal anesthesia was obtained, the abdomen was prepped and draped in the usual manner. A Veress needle was inserted in the periumbilical region and making sure that it was in the intra-abdominal cavity, adequate pneumoperitoneum was obtained. The needle was removed. A periumbilical incision was made and a 10 mm trocar was inserted. A full laparoscopy did not reveal any gross intra-abdominal pathology. So at this point under direct visualization, another 10 mm trocar was inserted just right of the midline in the epigastric region and two 5 mm trocars were inserted in the right upper quadrant. At this point, dissection was carried out of the triangle of Calot. The cystic duct was visualized and dissected down to the confluence of the common bile duct. The cystic duct was triply clipped and divided and continuing dissection at the triangle of [place], the cystic artery was visualized, triply clipped and divided. The gallbladder was then dissected from the gallbladder fossa using hemocautery and obtaining hemostasis the same way. Just before removing the whole gallbladder from its fossa, the area was copiously irrigated, hemostasis was obtained and then the gallbladder was totally removed from its fossa. The gallbladder was removed from the peritoneal cavity via the umbilical incision and once this was done, the trocar was reinserted and the right upper quadrant was copiously irrigated and suctioned. Once this was done and making sure that hemostasis was excellent, all trocars were removed under direct visualization and the umbilical and epigastric incisions were closed with #10 Vicryl. The skin was approximated using fine nylon. All incisions were infiltrated with Marcaine. POSTOPERATIVE CONDITION: The patient tolerated the procedure very well and was transferred to the Recovery Room in good general status. Luis Teague MD
== END 2017-10-02 10:55 | disposition home or self-care (01) | DRG 418 ==
LOC: H.ER 19:40 → H.ERHOLD 23:07 → H.MEDSURG1 09-25 00:55
PROVIDERS: ADMIT Family Medicine; ATTEND Family Medicine
PROC: 3E0234Z Introduction of Serum, Toxoid and Vaccine into Muscle, Percutaneous Approach (ICD-10-PCS; principal; 2017-09-25)
PROC: 0FT44ZZ Resection of Gallbladder, Percutaneous Endoscopic Approach (ICD-10-PCS; 2017-10-01)
PROC: BF13YZZ Fluoroscopy of Gallbladder and Bile Ducts using Other Contrast (ICD-10-PCS; 2017-10-01)
DX: K80.00 Calculus of gallbladder with acute cholecystitis without obstruction (principal); R78.81 Bacteremia; I48.2 Chronic atrial fibrillation; E78.00 Pure hypercholesterolemia, unspecified; E11.9 Type 2 diabetes mellitus without complications; B96.20 Unspecified Escherichia coli [E. coli] as the cause of diseases classified elsewhere; Z23 Encounter for immunization; Z91.041 Radiographic dye allergy status; Z79.01 Long term (current) use of anticoagulants; I10 Essential (primary) hypertension; Z87.891 Personal history of nicotine dependence; E78.5 Hyperlipidemia, unspecified; Z53.20 Procedure and treatment not carried out because of patient's decision for unspecified reasons